=== PATIENT | female | born 1965 | race Caucasian/White ===

== ENCOUNTER 2017-01-16 23:58 | Emergency (ER) | payer OTHER ==
[2017-01-17] MEDS ORDERED: TYLENOL 325 MG PO ONE (00:53)
[2017-01-17] MEDS ORDERED: Phenergan 25 MG INJ IV ONE (00:53)
[2017-01-17] MEDS ORDERED: Sodium Chloride 0.9% 1000 ML 1,000 ML IV STA ×2 (00:53→01:27)
--- NOTE | 2017-01-17 00:59 | ERPHSYRPT ---
- History of Present Illness Time Seen by Provider: 01/17/17 00:47 Source: patient Exam Limitations: no limitations Patient Subjective Stated Complaint: Pt sts left flank pain today with difficulty urianting. Sts feels like she is just dribbling. 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 Sts still feels nauseated. Triage Nursing Assessment: Pt alert, oriented, answers all questions appropriately. Skin p/w/d, resps non-labored. Pt ambulatory to tx room, steady gait noted. Physician History: FOR THE PAST 2 DAYS PT HAS HAD INTERMITTENT LUQ ABDOMINAL CRAMPS LASTING UP TO 30 MINUTES PER EPISODE, DIARRHEA X5 AND VOMITING X2; FOR THE PAST 9 HOURS CONSTANT FRONTAL HEADACHE, URINARY URGENCY AND FEVER UP TO 100.9 DEGREES. Allergies/Adverse Reactions: codeine [Codeine] Allergy (Mild, Verified 01/17/17 00:21) Home Medications: Ativan 05/30/12 [History] Lortab 5-500 Tablet 05/30/12 [History] Pepcid 20 MG 20 mg PO DAILY 05/30/12 [History] Zyrtec 05/30/12 [History] Hx Tetanus, Diphtheria Vaccination/Date Given: No Hx Influenza Vaccination/Date Given: No Hx Pneumococcal Vaccination/Date Given: No Immunizations Up to Date: Yes - Review of Systems Constitutional: Fever Abdominal/Gastrointestinal: Abdominal Pain, Vomiting, Diarrhea Genitourinary Symptoms: Urgency Neurological: Headache All Other Systems: Reviewed and Negative - Past Medical History Pertinent Past Medical History: Yes Respiratory History: Asthma GI Medical History: GERD - Social History Smoking Status: Never smoker Exposure to second hand smoke: No Drug Use: none Patient Lives Alone: No - Female History Hx Now: No - Nursing Vital Signs Nursing Vital Signs: Initial Vital Signs Temperature 99.2 F 01/17/17 00:44 Pulse Rate 112 H 01/17/17 00:44 Respiratory Rate 16 01/17/17 00:44 Blood Pressure 130/73 01/17/17 00:44 O2 Sat by Pulse Oximetry 93 L 01/17/17 00:44 Pain Scale Pain Intensity 2 - Physical Exam General Appearance: alert Eye Exam: PERRL/EOMI Ears, Nose, Throat Exam: TMs normal, dry mucous membranes Neck Exam: normal inspection Respiratory Exam: lungs clear, airway intact Cardiovascular Exam: tachycardia Gastrointestinal/Abdomen Exam: soft, tenderness (MILD SUPRAPUBIC TENDERNESS), other (B.S. MILDLY HYPERACTIVE AND NORMOTONIC), No guarding Back Exam: normal range of motion Extremity Exam: normal inspection Neurologic Exam: alert, cooperative, normal mood/affect Skin Exam: warm, dry SpO2 Interpretation: normal SpO2: 93 Oxygen Delivery: Room Air - Course Nursing assessment & vital signs reviewed: Yes - CT Exams Abdomen/Pelvis CT Interpretation: Tele-radiologist Report (SEE REPORT) Ordered Tests: Active Orders 24 hr Category Date Time Status IV Insertion STAT Care 01/17/17 00:53 Active ABDOMEN AND PELVIS W/0 CONTRAS [CT] Stat Exams 01/17/17 02:53 Taken AMYLASE Stat Lab 01/17/17 01:00 Completed BLOOD CULTURE Stat Lab 01/17/17 01:12 Received CBC W DIFF Stat Lab 01/17/17 01:00 Completed CMP Stat Lab 01/17/17 01:00 Completed LIPASE Stat Lab 01/17/17 01:00 Completed Lactic Acid Stat Lab 01/17/17 01:06 Completed MAG [MAGNESIUM] Stat Lab 01/17/17 01:00 Completed [place] Screen Stat Lab 01/17/17 01:00 Completed UA W/RFX UR CULTURE Stat Lab 01/17/17 01:45 Completed Medication Summary Discontinued Medications Generic Name Dose Route Start Last Admin Trade Name Freq PRN Reason Stop Dose Admin Acetaminophen 650 mg 01/17/17 00:53 01/17/17 01:19 Tylenol 325 Mg PO 01/17/17 00:54 650 mg STAT ONE Administration Acetaminophen Confirm 01/17/17 01:14 Tylenol 325 Mg Administered 01/17/17 01:15 Dose 650 mg .ROUTE .STK-MED ONE Sodium Chloride 1,000 mls @ 999 mls/hr 01/17/17 00:53 01/17/17 01:19 Sodium Chloride 0.9% 1000 Ml IV 01/17/17 01:53 999 mls/hr .Q1H1M STA Administration Sodium Chloride Confirm 01/17/17 01:14 Sodium Chloride 0.9% 1000 Ml Administered 01/17/17 01:15 Dose 1,000 mls @ ud .ROUTE .STK-MED ONE Sodium Chloride 1,000 mls @ 999 mls/hr 01/17/17 01:27 01/17/17 02:40 Sodium Chloride 0.9% 1000 Ml IV 01/17/17 02:27 999 mls/hr .Q1H1M STA Administration Magnesium Sulfate/Dextrose 100 mls @ 200 mls/hr 01/17/17 01:56 01/17/17 02:09 Magnesium 1 Gm / 100 Ml D5w IV 01/17/17 02:25 200 mls/hr STAT ONE Administration Magnesium Sulfate/Dextrose Confirm 01/17/17 02:06 Magnesium 1 Gm / 100 Ml D5w Administered 01/17/17 02:07 Dose 100 mls @ ud IV .STK-MED ONE Sodium Chloride Confirm 01/17/17 02:22 Sodium Chloride 0.9% 1000 Ml Administered 01/17/17 02:23 Dose 1,000 mls @ ud .ROUTE .STK-MED ONE Promethazine HCl 12.5 mg 01/17/17 00:53 01/17/17 01:19 Phenergan 25 Mg Inj IV 01/17/17 00:54 12.5 mg STAT ONE Administration Promethazine HCl Confirm 01/17/17 01:14 Phenergan 25 Mg Inj Administered 01/17/17 01:15 Dose 25 mg .ROUTE .STK-MED ONE Lab/Rad Data: Laboratory Result Diagrams 01/17/17 01:00 01/17/17 01:00 Laboratory Results 01/17/17 01/17/17 01/17/17 Range/Units 01:45 01:06 01:00 WBC (4.0-10.5) K/mm3 RBC (4.1-5.4) M/mm3 Hgb (12.0-16.0) gm/dl Hct (35-47) % MCV (78-100) fl MCH (26-32) pg MCHC (32-36) g/dl RDW (11.5-14.0) % Plt Count (150-450) K/mm3 MPV (6-9.5) fl Gran % (36.0-66.0) % Lymphocytes % (24.0-44.0) % Monocytes % (0.0-12.0) % Eosinophils % (0.00-5.0) % Basophils % (0.0-0.4) % Basophils # (0-0.4) Sodium (136-145) mEq/L Potassium (3.5-5.1) mEq/L Chloride (98-107) mEq/L Carbon Dioxide (21-32) mEq/L Anion Gap (5-15) MEQ/L BUN (9-20) mg/dL Creatinine (0.55-1.30) mg/dl Estimated GFR ML/MIN Glucose (70-110) MG/DL Lactic Acid 0.7 (0.4-2.0) Calcium (8.5-10.1) mg/dL Magnesium (1.8-2.4) mg/dL Total Bilirubin (0.2-1.0) mg/dL AST (15-37) U/L ALT (12-78) U/L Alkaline Phosphatase (46-116) U/L Serum Total Protein (6.4-8.2) gm/dL Albumin (3.4-5.0) g/dL Amylase (25-115) U/L Lipase (73-393) U/L Ur Collection Type CLEAN CATCH Urine Color YELLOW (YELLOW) Urine Appearance CLEAR (CLEAR) Urine pH 6.0 (5-6) Ur Specific [place] 1.015 (1.005-1.025) Urine Protein NEGATIVE (Negative) Urine Ketones NEGATIVE (NEGATIVE) Urine Blood NEGATIVE (0-5) Mj/ul Urine Nitrite NEGATIVE (NEGATIVE) Urine Bilirubin NEGATIVE (NEGATIVE) Urine Urobilinogen NORMAL (0-1) mg/dL Ur Leukocyte Esterase NEGATIVE (NEGATIVE) Urine Glucose NEGATIVE (NEGATIVE) mg/dL Monoscreen NEGATIVE (Negative) Specimen Received 01/17/17:0145 01/17/17 01/17/17 01/17/17 Range/Units 01:00 01:00 01:00 WBC 12.4 H (4.0-10.5) K/mm3 RBC 4.59 (4.1-5.4) M/mm3 Hgb 13.7 (12.0-16.0) gm/dl Hct 40.5 (35-47) % MCV 88.2 (78-100) fl MCH 29.8 (26-32) pg MCHC 33.8 (32-36) g/dl RDW 12.3 (11.5-14.0) % Plt Count 206 (150-450) K/mm3 MPV 9.6 H (6-9.5) fl Gran % 84.5 H (36.0-66.0) % Lymphocytes % 9.9 L (24.0-44.0) % Monocytes % 4.8 (0.0-12.0) % Eosinophils % 0.6 (0.00-5.0) % Basophils % 0.2 (0.0-0.4) % Basophils # 0.02 (0-0.4) Sodium 140 (136-145) mEq/L Potassium 3.5 (3.5-5.1) mEq/L Chloride 105 (98-107) mEq/L Carbon Dioxide 25.2 (21-32) mEq/L Anion Gap 13.6 (5-15) MEQ/L BUN 11 (9-20) mg/dL Creatinine 0.79 (0.55-1.30) mg/dl Estimated GFR > 60 ML/MIN Glucose 113 H (70-110) MG/DL Lactic Acid (0.4-2.0) Calcium 8.5 (8.5-10.1) mg/dL Magnesium 1.5 L (1.8-2.4) mg/dL Total Bilirubin 0.50 (0.2-1.0) mg/dL AST 12 L (15-37) U/L ALT 23 (12-78) U/L Alkaline Phosphatase 104 (46-116) U/L Serum Total Protein 6.8 (6.4-8.2) gm/dL Albumin 3.6 (3.4-5.0) g/dL Amylase 34 (25-115) U/L Lipase 103 (73-393) U/L Ur Collection Type Urine Color (YELLOW) Urine Appearance (CLEAR) Urine pH (5-6) Ur Specific [place] (1.005-1.025) Urine Protein (Negative) Urine Ketones (NEGATIVE) Urine Blood (0-5) Mj/ul Urine Nitrite (NEGATIVE) Urine Bilirubin (NEGATIVE) Urine Urobilinogen (0-1) mg/dL Ur Leukocyte Esterase (NEGATIVE) Urine Glucose (NEGATIVE) mg/dL Monoscreen (Negative) Specimen Received - Departure Time of Disposition: 04:24 Departure Disposition: Home Clinical Impression: ABDOMINAL PAIN, HYPOMAGNESEMIA, DIARRHEA, VOMITING Condition: Stable Critical Care Time: No Referrals: RAINA ABRAMS [NON-STAFF PHY W/O PRIVILEGES] - Instructions: Vomiting -- Adult, Diarrhea and Traveler's Diarrhea -- Adult, Abdominal Pain-Adult Additional Instructions: FOLLOW UP WITH PRIVATE DOCTOR TOMORROW. Prescriptions: Promethazine HCl 25 mg [Phenergan 25 mg] 25 mg PO Q4H PRN PRN #14 tablet PRN Reason: Nausea/Vomiting
[2017-01-17] MEDS ORDERED: Sodium Chloride 0.9% 1000 ML 1,000 ML ONE ×2 (01:14→02:22)
[2017-01-17] MEDS ORDERED: TYLENOL 325 MG ONE (01:14)
[2017-01-17] MEDS ORDERED: Phenergan 25 MG INJ ONE (01:14)
[2017-01-17 01:16] LABS: BASOPHIL % 0.2 % (0.0-0.4); Eosinophil % 0.6 % (0.00-5.0); Granulocytes % 84.5 % (36.0-66.0); Lymphocytes % 9.9 % (24.0-44.0); Mean Cell Volume 88.2 fl (78-100); Mean Corpuscular Hemoglobin 29.8 pg (26-32); Mean Platelet Volume 9.6 fl (6-9.5); Monocytes % 4.8 % (0.0-12.0); Platelet Count 206 K/mm3 (150-450); Red Blood Count 4.59 M/mm3 (4.1-5.4); Red Cell Distribution Width 12.3 % (11.5-14.0); White Blood Count 12.4 K/mm3 (4.0-10.5)
[2017-01-17 01:41] LABS: ALBUMIN 3.6 g/dL (3.4-5.0); ALKALINE PHOSPHATASE 104 U/L (46-116); ANION GAP 13.6 MEQ/L (5-15); BLOOD UREA NITROGEN 11 mg/dL (9-20); CHLORIDE 105 mEq/L (98-107); Carbon Dioxide 25.2 mEq/L (21-32); Glucose 113 MG/DL (70-110); LIPASE 103 U/L (73-393); Potassium 3.5 mEq/L (3.5-5.1); SGOT/AST 12 U/L (15-37); SGPT/ALT 23 U/L (12-78); SODIUM 140 mEq/L (136-145); Total Protein 6.8 gm/dL (6.4-8.2)
[2017-01-17] MEDS ORDERED: Magnesium 1 Gm / 100 Ml D5W*** 100 ML IV ONE ×2 (01:56→02:06)
[2017-01-17 01:59] LABS: Collection Type CLEAN CATCH
[2017-01-17 02:00] LABS: ADD URINE CULTURE? NO (NO); Bilirubin NEGATIVE (NEGATIVE); Blood NEGATIVE Ery/ul (0-5); COMPLETE URINE MICROSCOPIC? NO; Glucose NEGATIVE (NEGATIVE); Leukocyte Esterase NEGATIVE (NEGATIVE)
[2017-01-17 04:46] VITALS: BP 114/56; PULSE 90; O2SAT 97
--- NOTE | 2017-01-17 09:03 | XRAY ---
Indication: Left upper quadrant pain. Nausea, vomiting, diarrhea, and fever. Multiple contiguous axial images obtained through the abdomen and pelvis without contrast as ordered. Comparison: July 01, 2007. Lung bases demonstrates mild bibasilar dependent atelectasis. Heart is not enlarged. Noncontrasted stomach and bowel loops appear nonobstructed. Minimal sigmoid diverticulosis without diverticulitis. Appendix not seen. There is again a left ovary cyst today measuring 4.7 cm in greatest axial dimension. No free fluid/air. Uterus again surgically absent. Stable 5.5 x 4.0 cm well-circumscribed soft tissue mass adjacent to the splenic hilum probably splenule. Remaining liver, gallbladder, pancreas, spleen, adrenal glands, kidneys, ureters, bladder, and aorta appear unremarkable for noncontrast exam. Osseous structures intact with flowing osteophytes throughout the thoracolumbar spine. Impression: 1. 4.7 cm left ovary cyst. This can be better evaluated with pelvic sonogram if clinically warranted. 2. Stable splenic splenule. 3. Sigmoid diverticulosis without diverticulitis. 4. No new or acute intra-abdominal/pelvic abnormalities on this noncontrast exam. Comment: Preliminary interpretation was made by C. No discrepancy. CT DI 28.13
== END 2017-01-17 04:45 | disposition home or self-care (01) ==
LOC: ED 23:58
DX: R10.9 Unspecified abdominal pain (principal); E83.42 Hypomagnesemia; R19.7 Diarrhea, unspecified; R11.2 Nausea with vomiting, unspecified; R51 Headache; R39.15 Urgency of urination; R50.9 Fever, unspecified
CPT/HCPCS: 36000; 36415; 74176; 80053; 81002; 82150; 83605; 83690; 83735; 85025; 86308; 87040; 96360; 96361; 96365; 96374; 99284; J2550; J3475; A9270-GY

== ENCOUNTER 2019-06-17 21:51 | Emergency (ER) | payer OTHER ==
[2019-06-17] MEDS ORDERED: TYLENOL 325 MG PO STA (22:25)
[2019-06-17] MEDS ORDERED: Sodium Chloride 0.9% 1000 ML 1,000 ML IV STA (22:25)
[2019-06-17] MEDS ORDERED: TYLENOL 325 MG ONE (22:30)
[2019-06-17] MEDS ORDERED: Sodium Chloride 0.9% 1000 ML 1,000 ML ONE (22:30)
[2019-06-17 22:49] LABS: Absolute Neutrophil Ct (ANC) 10.41 (1.4-6.9); BASOPHIL % 0.2 % (0.0-0.4); Basophil (Absolute #) 0.03 (0-0.4); Eosinophil % 0.9 % (0.00-5.0); Eosinophil (Absolute #) 0.11 (0-0.5); Hematocrit 42.6 % (35-47); Lymphocyte (Absolute #) 1.11 (1.0-4.6); Lymphocytes % 8.9 % (24.0-44.0); Mean Cell Volume 90.8 fl (78-100); Mean Corpuscular Hemoglobin 29.9 pg (26-32); Mean Corpuscular Hgb Concent. 32.9 g/dl (32-36); Mean Platelet Volume 9.7 fl (7.5-11.0); Monocyte (Absolute #) 0.79 (0.0-1.3); Monocytes % 6.3 % (0.0-12.0); Neutrophil % 83.7 % (36.0-66.0); Platelet Count 212 K/mm3 (150-450); Red Blood Count 4.69 M/mm3 (4.1-5.4); Red Cell Distribution Width 12.3 % (11.5-14.0); White Blood Count 12.5 K/mm3 (4.0-10.5)
--- NOTE | 2019-06-17 22:57 | ERPHSYRPT ---
- History of Present Illness Time Seen by Provider: 06/17/19 22:10 Source: patient Exam Limitations: no limitations Physician History: 54 y/o white female feeling well until earlier today when she began having dysuria, urgency and urinary frequency. pt felt ok after sx began. pt now feeling weak, myalgias, arthralgias. sore throat. no cough. no specific cp. no n /v/d. no abd pain Timing/Duration: today Severity: moderate Associated Symptoms: fever, malaise, weakness, No nausea, No vomiting, No abdominal pain, No cough Allergies/Adverse Reactions: codeine [Codeine] Allergy (Mild, Verified 01/17/17 00:21) Home Medications: Acetaminophen/Diphenhydramine [Tylenol Pm Ex-Strength Caplet] 500 mg PO TID [History] Albuterol 8 gm Mdi Hfa [Ventolin Hfa MDI] 2 puffs IH TID PRN PRN 06/17/19 [History] Bupropion HCl 75 mg PO BID 06/17/19 [History] Mag Hydrox/Al Hydrox/Simeth [Maalox Es 30 ml Unit Dose] 30 ml PO TID 06/17 [History] Hx Tetanus, Diphtheria Vaccination/Date Given: No Hx Influenza Vaccination/Date Given: No Hx Pneumococcal Vaccination/Date Given: No - Review of Systems Constitutional: Fever, Weakness Eyes: No Symptoms Ears, Nose, & Throat: No Symptoms Respiratory: No Symptoms Cardiac: No Symptoms Abdominal/Gastrointestinal: No Symptoms, No Abdominal Pain, No Nausea, No Vomiting, No Dysphagia Genitourinary Symptoms: Dysuria, Frequency, Urgency Musculoskeletal: No Symptoms Skin: No Symptoms Neurological: No Symptoms Psychological: No Symptoms Endocrine: No Symptoms Hematologic/Lymphatic: No Symptoms Immunological/Allergic: No Symptoms All Other Systems: Reviewed and Negative - Past Medical History Pertinent Past Medical History: Yes Neurological History: No Pertinent History ENT History: No Pertinent History Cardiac History: No Pertinent History Respiratory History: Asthma Endocrine Medical History: No Pertinent History Musculoskeletal History: No Pertinent History GI Medical History: GERD History: No Pertinent History Psycho-Social History: No Pertinent History Female Reproductive Disorders: No Pertinent History - Past Surgical History Past Surgical History: No Neuro Surgical History: No Pertinent History Cardiac: No Pertinent History Respiratory: No Pertinent History Gastrointestinal: No Pertinent History Genitourinary: No Pertinent History Musculoskeletal: No Pertinent History Female Surgical History: No Pertinent History - Social History Smoking Status: Never smoker Exposure to second hand smoke: No Drug Use: none Patient Lives Alone: No - Nursing Vital Signs Nursing Vital Signs: Initial Vital Signs Pulse Rate 102 H 06/17/19 22:08 Respiratory Rate 19 06/17/19 22:08 Blood Pressure 124/75 06/17/19 22:08 O2 Sat by Pulse Oximetry 96 06/17/19 22:08 Pain Scale Pain Intensity 3 - Physical Exam General Appearance: mild distress, alert, anxiety Eye Exam: PERRL/EOMI, eyes nml inspection Ears, Nose, Throat Exam: normal ENT inspection, moist mucous membranes Neck Exam: normal inspection, non-tender, supple, full range of motion Respiratory Exam: normal breath sounds, lungs clear, airway intact, No chest tenderness, No respiratory distress Cardiovascular Exam: regular rate/rhythm, normal heart sounds, normal peripheral pulses Gastrointestinal/Abdomen Exam: soft, normal bowel sounds, No tenderness, No guarding Pelvic Exam: not done Rectal Exam: not done Back Exam: normal inspection, normal range of motion, No CVA tenderness, No vertebral tenderness Extremity Exam: normal inspection, normal range of motion, pelvis stable Neurologic Exam: alert, oriented x 3, cooperative, group burner machine II-XII nml as tested Skin Exam: normal color, warm, dry Lymphatic Exam: No adenopathy SpO2 Interpretation: normal SpO2: 96 O2 Delivery: Room Air - Course Nursing assessment & vital signs reviewed: Yes Ordered Tests: Active Orders 24 hr Category Date Time Status IV Insertion STAT Care 06/17/19 22:25 Active Pulse Oximetry (ED) STAT Care 06/17/19 22:25 Active CHEST 1 VIEW (PORTABLE) Stat Exams 06/17/19 22:26 Taken BLOOD CULTURE Stat Lab 06/17/19 22:40 Received CBC W DIFF Stat Lab 06/17/19 22:30 Completed CMP Stat Lab 06/17/19 22:30 Completed Lactic Acid Stat Lab 06/17/19 22:46 Completed [place] Screen Stat Lab 06/17/19 22:30 Completed UA W/RFX UR CULTURE Stat Lab 06/17/19 22:00 Completed Medication Summary Generic Name Dose Route Start Last Admin Trade Name Freq PRN Reason Stop Dose Admin Sodium Chloride 500 mls @ 500 mls/hr 06/17/19 23:55 06/18/19 00:04 Sodium Chloride 0.9% 500 Ml IV 06/18/19 00:54 500 mls/hr .Q1H ONE Administration Discontinued Medications Generic Name Dose Route Start Last Admin Trade Name Sergo PRN Reason Stop Dose Admin Acetaminophen 650 mg 06/17/19 22:25 06/17/19 22:31 Tylenol 325 Mg PO 06/17/19 22:26 650 mg STAT STA Administration Acetaminophen Confirm 06/17/19 22:30 Tylenol 325 Mg Administered 06/17/19 22:31 Dose 650 mg .ROUTE .STK-MED ONE Sodium Chloride 1,000 mls @ 999 mls/hr 06/17/19 22:25 06/17/19 23:43 Sodium Chloride 0.9% 1000 Ml IV 06/17/19 23:25 Infused .Q1H1M STA Infusion Sodium Chloride Confirm 06/17/19 22:30 Sodium Chloride 0.9% 1000 Ml Administered 06/17/19 22:31 Dose 1,000 mls @ ud .ROUTE .STK-MED ONE Sodium Chloride Confirm 06/18/19 00:03 Sodium Chloride 0.9% 500 Ml Administered 06/18/19 00:04 Dose 500 mls @ ud IV .STK-MED ONE Lab/Rad Data: Laboratory Result Diagrams 06/17/19 22:30 06/17/19 22:30 Laboratory Results 06/17/19 06/17/19 06/17/19 Range/Units 22:46 22:43 22:30 WBC (4.0-10.5) K/mm3 RBC (4.1-5.4) M/mm3 Hgb (12.0-16.0) gm/dl Hct (35-47) % MCV (78-100) fl MCH (26-32) pg MCHC (32-36) g/dl RDW (11.5-14.0) % Plt Count (150-450) K/mm3 MPV (7.5-11.0) fl Gran % (36.0-66.0) % Eos # (Auto) (0-0.5) Absolute Lymphs (auto) (1.0-4.6) Absolute Monos (auto) (0.0-1.3) Lymphocytes % (24.0-44.0) % Monocytes % (0.0-12.0) % Eosinophils % (0.00-5.0) % Basophils % (0.0-0.4) % Absolute Granulocytes (1.4-6.9) Basophils # (0-0.4) Sodium (137-145) mmol/L Potassium (3.5-5.1) mmol/L Chloride (98-107) mmol/L Carbon Dioxide (22-30) mmol/L Anion Gap (5-15) MEQ/L BUN (7-17) mg/dL Creatinine (0.52-1.04) mg/dL Estimated GFR ML/MIN Glucose (74-106) mg/dL Lactic Acid 0.9 (0.4-2.0) Calcium (8.4-10.2) mg/dL Total Bilirubin (0.2-1.3) mg/dL AST (14-36) U/L ALT (0-35) U/L Alkaline Phosphatase (38-126) U/L Serum Total Protein (6.3-8.2) g/dL Albumin (3.5-5.0) g/dL Urine Color (YELLOW) Urine Appearance (CLEAR) Urine pH (5-6) Ur Specific [place] (1.005-1.025) Urine Protein (Negative) Urine Ketones (NEGATIVE) Urine Blood (0-5) Mj/ul Urine Nitrite (NEGATIVE) Urine Bilirubin (NEGATIVE) Urine Urobilinogen (0-1) mg/dL Ur Leukocyte Esterase (NEGATIVE) Urine WBC (Auto) (0-5) /HPF Urine RBC (Auto) (0-2) /HPF U Epithel Cells (Auto) (FEW) /HPF Urine Bacteria (Auto) (NEGATIVE) /HPF Urine Culture Reflexed (NO) Urine Glucose (NEGATIVE) mg/dL Monoscreen NEGATIVE (Negative) Influenza Type A Ag NEGATIVE (NEGATIVE) Influenza Type B Ag NEGATIVE (NEGATIVE) RSV (PCR) NEGATIVE (Negative) Group A Strep Antibody NEGATIVE (NEGATIVE) 06/17/19 06/17/19 06/17/19 Range/Units 22:30 22:30 22:00 WBC 12.5 H (4.0-10.5) K/mm3 RBC 4.69 (4.1-5.4) M/mm3 Hgb 14.0 (12.0-16.0) gm/dl Hct 42.6 (35-47) % MCV 90.8 (78-100) fl MCH 29.9 (26-32) pg MCHC 32.9 (32-36) g/dl RDW 12.3 (11.5-14.0) % Plt Count 212 (150-450) K/mm3 MPV 9.7 (7.5-11.0) fl Gran % 83.7 H (36.0-66.0) % Eos # (Auto) 0.11 (0-0.5) Absolute Lymphs (auto) 1.11 (1.0-4.6) Absolute Monos (auto) 0.79 (0.0-1.3) Lymphocytes % 8.9 L (24.0-44.0) % Monocytes % 6.3 (0.0-12.0) % Eosinophils % 0.9 (0.00-5.0) % Basophils % 0.2 (0.0-0.4) % Absolute Granulocytes 10.41 H (1.4-6.9) Basophils # 0.03 (0-0.4) Sodium 138 (137-145) mmol/L Potassium 3.9 (3.5-5.1) mmol/L Chloride 99 (98-107) mmol/L Carbon Dioxide 28 (22-30) mmol/L Anion Gap 14.2 (5-15) MEQ/L BUN 14 (7-17) mg/dL Creatinine 0.64 (0.52-1.04) mg/dL Estimated GFR > 60.0 ML/MIN Glucose 102 (74-106) mg/dL Lactic Acid (0.4-2.0) Calcium 9.4 (8.4-10.2) mg/dL Total Bilirubin 0.70 (0.2-1.3) mg/dL AST 23 (14-36) U/L ALT 18 (0-35) U/L Alkaline Phosphatase 116 (38-126) U/L Serum Total Protein 8.2 (6.3-8.2) g/dL Albumin 4.8 (3.5-5.0) g/dL Urine Color STRAW (YELLOW) Urine Appearance CLEAR (CLEAR) Urine pH 7.0 (5-6) Ur Specific [place] 1.012 (1.005-1.025) Urine Protein NEGATIVE (Negative) Urine Ketones NEGATIVE (NEGATIVE) Urine Blood NEGATIVE (0-5) Mj/ul Urine Nitrite NEGATIVE (NEGATIVE) Urine Bilirubin NEGATIVE (NEGATIVE) Urine Urobilinogen NEGATIVE (0-1) mg/dL Ur Leukocyte Esterase TRACE (NEGATIVE) Urine WBC (Auto) 3-5 (0-5) /HPF Urine RBC (Auto) 0-2 (0-2) /HPF U Epithel Cells (Auto) RARE (FEW) /HPF Urine Bacteria (Auto) RARE (NEGATIVE) /HPF Urine Culture Reflexed NO (NO) Urine Glucose NEGATIVE (NEGATIVE) mg/dL Monoscreen (Negative) Influenza Type A Ag (NEGATIVE) Influenza Type B Ag (NEGATIVE) RSV (PCR) (Negative) Group A Strep Antibody (NEGATIVE) - Progress Progress: improved, pain not gone completely, re-examined Progress Note: 06/18/19 00:39 cxr-no acute process Counseled pt/family regarding: lab results, diagnosis, need for follow-up, rad results - Departure Departure Disposition: Home Clinical Impression: Fever, Leukocytosis, UTI (urinary tract infection) Condition: Stable Critical Care Time: No Referrals: PRIYANKA CONDE MD [Primary Care Provider] - Additional Instructions: drink plenty of fluids. tylenol and ibuprofen for pain and fever. follow up with primary doctor for persistent symptoms Prescriptions: Cefdinir [Omnicef] 300 mg PO BID #14 capsule Cefdinir 300 mg PO BID 7 Days #14 capsule
[2019-06-17 22:59] LABS: ALBUMIN 4.8 g/dL (3.5-5.0); ALKALINE PHOSPHATASE 116 U/L (38-126); ANION GAP 14.2 MEQ/L (5-15); BLOOD UREA NITROGEN 14 mg/dL (7-17); CHLORIDE 99 mmol/L (98-107); Calcium 9.4 mg/dL (8.4-10.2); Carbon Dioxide 28 mmol/L (22-30); Creatinine 1 0.64 mg/dL (0.52-1.04); Glucose 102 mg/dL (74-106); Potassium 3.9 mmol/L (3.5-5.1); SGOT/AST 23 U/L (14-36); SGPT/ALT 18 U/L (0-35); SODIUM 138 mmol/L (137-145); Total Protein 8.2 g/dL (6.3-8.2)
[2019-06-17 23:29] LABS: INFLUENZA A NEGATIVE (NEGATIVE); INFLUENZA B NEGATIVE (NEGATIVE); RESPIRATORY SYNCTIAL VIRUS NEGATIVE (Negative)
[2019-06-17 23:42] LABS: Appearance CLEAR (CLEAR); Bacteria RARE /HPF (NEGATIVE); Bilirubin NEGATIVE (NEGATIVE); Blood NEGATIVE Ery/ul (0-5); Epithelial Cells RARE /HPF (FEW); Glucose NEGATIVE (NEGATIVE); Ketones NEGATIVE (NEGATIVE); Leukocyte Esterase TRACE (NEGATIVE); Nitrite NEGATIVE (NEGATIVE); Protein,Urine Dip NEGATIVE (Negative); RBC 0-2 /HPF (0-2); Specific Gravity 1.012 (1.005-1.025); Urobilinogen NEGATIVE mg/dL (0-1)
[2019-06-17] MEDS ORDERED: Sodium Chloride 0.9% 500 ML 500 ML IV ONE (23:55)
[2019-06-18] MEDS ORDERED: Sodium Chloride 0.9% 500 ML 500 ML IV ONE (00:03)
[2019-06-18] MEDS ORDERED: ROCEPHIN 1 Gm-D5w 50 ml Bag** 1 G/50 ML IVPB IV ONE (00:38)
[2019-06-18] MEDS ORDERED: ROCEPHIN 1 Gm-D5w 50 ml Bag** 1 G/50 ML IVPB IV STA (00:42)
[2019-06-18 01:11] VITALS: BP 114/79; PULSE 100; O2SAT 95
--- NOTE | 2019-06-18 09:18 | XRAY ---
Indication: Fever and cough. Comparison: June 05, 2012. Portable chest again demonstrates normal heart and lungs with a few incidental calcified granulomas. Bony thorax intact with mild degenerative changes. No new/acute findings.
== END 2019-06-18 01:18 | disposition home or self-care (01) ==
LOC: ED 21:51
DX: R50.9 Fever, unspecified (principal); D72.829 Elevated white blood cell count, unspecified; N39.0 Urinary tract infection, site not specified
CPT/HCPCS: 36000; 36415; 71045; 80053; 81001; 83605; 85025; 86308; 87040; 87631; 87651; 94760; 96360; 96361; 96365; 99284; J0696; A9270-GY

== ENCOUNTER 2022-05-12 10:05 | Emergency (ER) | payer OTHER ==
[2022-05-12] MEDS ORDERED: DUONEB 0.5-3 MG/3 ml Neb IH ONE ×2 (10:36→12:33)
[2022-05-12] MEDS ORDERED: Sterile H2O 10 ml IJ ONE (10:45)
[2022-05-12] MEDS ORDERED: solu-MEDROL ONE (10:45)
[2022-05-12] MEDS: solu-MEDROL 80 MG, Sterile H2O 10 ml 2 ML IV ONE ×4 (10:46→10:53)
--- NOTE | 2022-05-12 10:52 | ERPHSYRPT ---
- History of Present Illness Time Seen by Provider: 05/12/22 10:16 Source: patient Exam Limitations: no limitations Patient Subjective Stated Complaint: SOB Triage Nursing Assessment: Patient brought back to ED per w/c and transferred self to bed. Patient A+O x3. Patient's skin pink, warm and dry. Patient complains of increased SOB, fever, productive cough with green sputum since Monday. Patient complains of chest discomfort when coughing 5/10. Lungs noted to have rhonchi throughout. Physician History: 56 years old female presented in the ER with chief complaint of cough congestion with fever chills for last 5 days. Patient reports cough productive of yellow- green sputum copious in amount with generalized chest soreness/pain. She earlier checked her temperature it was 101, is sent in ER from [facility] for further evaluation. Patient reports she feels more short of breath with lying down and has been sleeping on recliner. She was taking Keflex for cellulitis and finished yesterday. Timing/Duration: day(s), gradual onset, worse Activities at Onset: activity Severity of Dyspnea-Max: moderate Severity of Dyspnea-Current: moderate Possible Cause: unknown cause Modifying Factors: Improves With: rest. Worsens With: coughing, exertion, lying down Associated Symptoms: cough, chest pain/discomfort, fever, productive cough, tigh tness Allergies/Adverse Reactions: codeine [Codeine] Allergy (Mild, Verified 05/12/22 10:06) Home Medications: Acetaminophen/Diphenhydramine [Tylenol Pm Ex-Strength Caplet] 500 mg PO TID 06/17/19 [History] Albuterol 8 gm Mdi Hfa [Ventolin Hfa MDI] 2 puffs IH TID PRN PRN 06/17/19 [History] buPROPion HCL [Bupropion HCl] 75 mg PO BID 06/17/19 [History] Hx Tetanus, Diphtheria Vaccination/Date Given: No Hx Influenza Vaccination/Date Given: Yes Hx Pneumococcal Vaccination/Date Given: No Immunizations Up to Date: Yes Travel Risk - International Travel Have you traveled outside of the country in past 3 weeks: No - Coronavirus Screening Are you exhibiting any of the following symptoms?: Yes Symptoms: Fever, Cough: New Onset, Shortness of Breath Close contact with a COVID-19 positive Pt in past 14-21 Days: No - Vaccine Status Have you recieved a Covid-19 vaccination: Yes Manager Billing: Pfizer - Vaccination Dates Date of 2cond Vaccination (if applicable): na - Review of Systems Constitutional: Fever, Chills, Fatigue Eyes: No Symptoms Ears, Nose, & Throat: Nose Congestion Respiratory: Cough, Dyspnea, Wheezing Cardiac: No Symptoms Abdominal/Gastrointestinal: No Symptoms Genitourinary Symptoms: No Symptoms Musculoskeletal: Myalgias Skin: No Symptoms Neurological: No Symptoms Psychological: No Symptoms Endocrine: No Symptoms Hematologic/Lymphatic: No Symptoms Immunological/Allergic: No Symptoms - Past Medical History Pertinent Past Medical History: Yes Neurological History: No Pertinent History ENT History: No Pertinent History Cardiac History: No Pertinent History Respiratory History: Asthma Endocrine Medical History: No Pertinent History Musculoskeletal History: No Pertinent History GI Medical History: GERD History: No Pertinent History Psycho-Social History: No Pertinent History Female Reproductive Disorders: No Pertinent History - Past Surgical History Past Surgical History: No Neuro Surgical History: No Pertinent History Cardiac: No Pertinent History Respiratory: No Pertinent History Gastrointestinal: No Pertinent History Genitourinary: No Pertinent History Musculoskeletal: No Pertinent History Female Surgical History: No Pertinent History - Social History Smoking Status: Never smoker Exposure to second hand smoke: No Drug Use: none Patient Lives Alone: No - Nursing Vital Signs Nursing Vital Signs: Initial Vital Signs Temperature 99.2 F 05/12/22 10:25 Pulse Rate 100 H 05/12/22 10:25 Respiratory Rate 18 05/12/22 10:25 Blood Pressure 144/83 05/12/22 10:25 O2 Sat by Pulse Oximetry 93 L 05/12/22 10:25 Pain Scale Pain Intensity 5 - Physical Exam General Appearance: no apparent distress, alert Eye Exam: PERRL/EOMI Ears, Nose, Throat Exam: hearing grossly normal, pharyngeal erythema Neck Exam: normal inspection, non-tender, supple, full range of motion Respiratory Exam: diminished breath sounds, rhonchi, wheezing Cardiovascular/Chest Exam: normal heart sounds, regular rate/rhythm Abdominal/Gastrointestinal Exam: soft, normal bowel sounds, No tenderness Extremity Exam: non-tender, normal range of motion Neurologic Exam: alert, oriented x 3, cooperative Skin Exam: normal color SpO2 Interpretation: normal SpO2: 93 O2 Delivery: Room Air - Course EKG Interpreted by Me: RATE (103), Sinus Tach, NORMAL AXIS, NORMAL INTERVALS, NORMAL QRS Ordered Tests: Active Orders 24 hr Category Date Time Status Dialysis Chief Equipment Technician STAT Care 05/12/22 10:37 Active EKG-ER Only STAT Care 05/12/22 10:36 Active IV Insertion STAT Care 05/12/22 10:36 Active CHEST 1 VIEW (PORTABLE) Stat Exams 05/12/22 10:52 Completed BLOOD CULTURE Stat Lab 05/12/22 10:50 Received CBC W DIFF Stat Lab 05/12/22 10:02 Completed CMP Stat Lab 05/12/22 10:02 Completed Lactic Acid Stat Lab 05/12/22 10:36 Ordered MAGNESIUM Stat Lab 05/12/22 10:02 Completed NT PRO BNP Stat Lab 05/12/22 10:02 Completed TROPONIN Q4H Lab 05/12/22 10:02 Completed TROPONIN Q4H Lab 05/12/22 14:45 Ordered TROPONIN Q4H Lab 05/12/22 18:45 Ordered Medication Summary Discontinued Medications Generic Name Dose Route Start Last Admin Trade Name Freq PRN Reason Stop Dose Admin Albuterol/Ipratropium 3 ml 05/12/22 10:36 Ipratropium/Albuterol Sulfate 3 Ml Ampul.Neb IH 05/12/22 10:37 STAT ONE Methylprednisolone Sodium 0 mg 05/12/22 10:36 05/12/22 10:53 Succinate 80 mg/ Sterile Water IV 05/12/22 10:37 80 mg 2 ml STAT ONE Administration Methylprednisolone Sodium Succinate Confirm 05/12/22 10:45 Methylprednis Sod Succ 125 Mg/2 Ml Vial Administered 05/12/22 10:46 Dose 125 mg .ROUTE .STK-MED ONE Sterile Water Confirm 05/12/22 10:45 Water For Injection,Sterile 10 Ml Vial Administered 05/12/22 10:46 Dose 10 ml IJ .STK-MED ONE Lab/Rad Data: Laboratory Result Diagrams 05/12/22 10:02 05/12/22 10:02 Laboratory Results 05/12/22 05/12/22 05/12/22 Range/Units Unknown 10:02 10:02 WBC (4.0-10.5) x10^3/uL RBC (4.1-5.4) x10^6/uL Hgb (12.0-16.0) g/dL Hct (35-47) % MCV (78-100) fL MCH (26-32) pg MCHC (32-36) g/dL RDW (11.5-14.0) % Plt Count (150-450) x10^3/uL MPV (7.5-11.0) fL Gran % (36.0-66.0) % Immature Gran % (Auto) (0.00-0.4) % Nucleat RBC Rel Count (0.00-0.1) % Eos # (Auto) (0-0.5) x10^3/uL Immature Gran # (Auto) (0.00-0.03) x10^3u/L Absolute Lymphs (auto) (1.0-4.6) x10^3/uL Absolute Monos (auto) (0.0-1.3) x10^3/uL Absolute Nucleated RBC (0.00-0.01) x10^3u/L Lymphocytes % (24.0-44.0) % Monocytes % (0.0-12.0) % Eosinophils % (0.00-5.0) % Basophils % (0.0-0.4) % Absolute Granulocytes (1.4-6.9) x10^3/uL Basophils # (0-0.4) x10^3/uL Sodium 138 (137-145) mmol/L Potassium 4.1 (3.5-5.1) mmol/L Chloride 106 (98-107) mmol/L Carbon Dioxide 24 (22-30) mmol/L Anion Gap 11.9 (5-15) MEQ/L BUN 13 (7-17) mg/dL Creatinine 0.54 (0.52-1.04) mg/dL Estimated GFR > 60.0 ML/MIN Glucose 129 H (74-106) mg/dL Calcium 9.0 (8.4-10.2) mg/dL Magnesium 1.8 (1.6-2.3) mg/dL Total Bilirubin 0.50 (0.2-1.3) mg/dL AST 20 (14-36) U/L ALT 21 (0-35) U/L Alkaline Phosphatase 91 (38-126) U/L Troponin I < 0.012 (0.000-0.034) ng/mL NT-Pro-B Natriuret Pep 115 (0-900) pg/mL Serum Total Protein 7.7 (6.3-8.2) g/dL Albumin 4.4 (3.5-5.0) g/dL Influenza Type A Ag NEGATIVE (NEGATIVE) Influenza Type B Ag NEGATIVE (NEGATIVE) RSV (PCR) NEGATIVE (Negative) SARS-CoV-2 (PCR) NEGATIVE (NEGATIVE) 05/12/22 Range/Units 10:02 WBC 11.7 H (4.0-10.5) x10^3/uL RBC 4.55 (4.1-5.4) x10^6/uL Hgb 13.4 (12.0-16.0) g/dL Hct 41.8 (35-47) % MCV 91.9 (78-100) fL MCH 29.5 (26-32) pg MCHC 32.1 (32-36) g/dL RDW 11.9 (11.5-14.0) % Plt Count 250 (150-450) x10^3/uL MPV 9.7 (7.5-11.0) fL Gran % 87.5 H (36.0-66.0) % Immature Gran % (Auto) 0.5 H (0.00-0.4) % Nucleat RBC Rel Count 0.0 (0.00-0.1) % Eos # (Auto) 0.02 (0-0.5) x10^3/uL Immature Gran # (Auto) 0.06 H (0.00-0.03) x10^3u/L Absolute Lymphs (auto) 0.85 L (1.0-4.6) x10^3/uL Absolute Monos (auto) 0.49 (0.0-1.3) x10^3/uL Absolute Nucleated RBC 0.00 (0.00-0.01) x10^3u/L Lymphocytes % 7.3 L (24.0-44.0) % Monocytes % 4.2 (0.0-12.0) % Eosinophils % 0.2 (0.00-5.0) % Basophils % 0.3 (0.0-0.4) % Absolute Granulocytes 10.22 H (1.4-6.9) x10^3/uL Basophils # 0.03 (0-0.4) x10^3/uL Sodium (137-145) mmol/L Potassium (3.5-5.1) mmol/L Chloride (98-107) mmol/L Carbon Dioxide (22-30) mmol/L Anion Gap (5-15) MEQ/L BUN (7-17) mg/dL Creatinine (0.52-1.04) mg/dL Estimated GFR ML/MIN Glucose (74-106) mg/dL Calcium (8.4-10.2) mg/dL Magnesium (1.6-2.3) mg/dL Total Bilirubin (0.2-1.3) mg/dL AST (14-36) U/L ALT (0-35) U/L Alkaline Phosphatase (38-126) U/L Troponin I (0.000-0.034) ng/mL NT-Pro-B Natriuret Pep (0-900) pg/mL Serum Total Protein (6.3-8.2) g/dL Albumin (3.5-5.0) g/dL Influenza Type A Ag (NEGATIVE) Influenza Type B Ag (NEGATIVE) RSV (PCR) (Negative) SARS-CoV-2 (PCR) (NEGATIVE) - Progress Progress: improved Air Movement: good Progress Note: 05/12/22 12:25 56 years old is evaluated for worsening cough and some difficulty breathing along with fever chills. She is given DuoNeb and Solu-Medrol, on reevaluation she is feeling much better. She is not hypoxic. Mildly tachypneic initially which improved after breathing treatment. She is not tachycardic. Chest x-ray did not show any acute cardiopulmonary findings. Work-up otherwise unremarkable including troponins. I believe patient has bronchitis, since its been going on for almost a week, will give short course of steroid and antibiotics. Outpatient follow-up recommended. Discussed signs symptoms of worsening needing return to ER which she seems understanding. Stable for discharge. Blood Culture(s) Obtained: Yes Antibiotics given: Yes Counseled pt/family regarding: lab results, diagnosis, need for follow-up, rad results - Departure Departure Disposition: Home Clinical Impression: Acute bronchitis Condition: Stable Critical Care Time: No Referrals: PRIYANKA CONDE MD [Primary Care Provider] - Follow up/PCP as directed (1-2 days for reevaluation) Instructions: Acute Bronchitis Additional Instructions: Take Tylenol/ibuprofen as needed for fever. Follow-up with primary care ph ysician. Use inhaler which you have at home as recommended. Return to ER for worsening cough, difficulty breathing, persistent high-grade fever chills etc. Prescriptions: Prednisone 20 mg [Deltasone 20 mg] 60 mg PO DAILY 5 Days #15 tablet Guaifenesin/Dextromethorphan [Mucinex Dm ER 1,200-60 mg Tab] 1 each PO BID 8 Days #16 tablet Doxycycline Hyclate 100 mg [Vibramycin 100 MG] 100 mg PO BID #14 tab
[2022-05-12 10:57] LABS: Absolute Neutrophil Ct (ANC) 10.22 x10^3/uL (1.4-6.9); Basophil (Absolute #) 0.03 x10^3/uL (0-0.4); Eosinophil % 0.2 % (0.00-5.0); Eosinophil (Absolute #) 0.02 x10^3/uL (0-0.5); Hematocrit 41.8 % (35-47); Hemoglobin 13.4 g/dL (12.0-16.0); Lymphocyte (Absolute #) 0.85 x10^3/uL (1.0-4.6); Lymphocytes % 7.3 % (24.0-44.0); Mean Cell Volume 91.9 fL (78-100); Mean Corpuscular Hemoglobin 29.5 pg (26-32); Mean Corpuscular Hgb Concent. 32.1 g/dL (32-36); Mean Platelet Volume 9.7 fL (7.5-11.0); Monocyte (Absolute #) 0.49 x10^3/uL (0.0-1.3); Monocytes % 4.2 % (0.0-12.0); Neutrophil % 87.5 % (36.0-66.0); Platelet Count 250 x10^3/uL (150-450); Red Blood Count 4.55 x10^6/uL (4.1-5.4); Red Cell Distribution Width 11.9 % (11.5-14.0); White Blood Count 11.7 x10^3/uL (4.0-10.5)
--- NOTE | 2022-05-12 11:01 | XRAY ---
Indication: Fever, cough, short of breath. Pneumonia. Comparison: June 17, 2019 Portable chest remains clear again with tiny left upper lobe calcified granuloma. Heart not enlarged. Bony thorax intact again with mild degenerative changes. No new/acute findings.
[2022-05-12 11:24] LABS: INFLUENZA A NEGATIVE (NEGATIVE); INFLUENZA B NEGATIVE (NEGATIVE); RESPIRATORY SYNCTIAL VIRUS NEGATIVE (Negative); SARS-CoV-2 Xpert Express NEGATIVE (NEGATIVE)
[2022-05-12 11:27] LABS: ALBUMIN 4.4 g/dL (3.5-5.0); ALKALINE PHOSPHATASE 91 U/L (38-126); ANION GAP 11.9 MEQ/L (5-15); BLOOD UREA NITROGEN 13 mg/dL (7-17); CHLORIDE 106 mmol/L (98-107); Carbon Dioxide 24 mmol/L (22-30); Creatinine 1 0.54 mg/dL (0.52-1.04); EST GLOMERULAR FILTRATION RATE > 60.0 ML/MIN; Glucose 129 mg/dL (74-106); MAGNESIUM 1.8 mg/dL (1.6-2.3); NT PRO BNP 115 pg/mL (0-900); Potassium 4.1 mmol/L (3.5-5.1); SGOT/AST 20 U/L (14-36); SGPT/ALT 21 U/L (0-35); SODIUM 138 mmol/L (137-145); Total Protein 7.7 g/dL (6.3-8.2)
[2022-05-12] MEDS ORDERED: Vibramycin 100 MG PO ONE (12:29)
[2022-05-12 12:36] VITALS: BP 113/87; PULSE 92
[2022-05-12 12:38] VITALS: O2SAT 95
[2022-05-12] MEDS ORDERED: Vibramycin 100 MG ONE (12:51)
== END 2022-05-12 13:04 | disposition home or self-care (01) ==
LOC: ED 10:05
DX: J20.9 Acute bronchitis, unspecified (principal); R50.9 Fever, unspecified; R05.1 Acute cough; R09.81 Nasal congestion; Z79.52 Long term (current) use of systemic steroids; Z79.899 Other long term (current) drug therapy
CPT/HCPCS: 0241U; 36000; 36415; 71045; 80053; 83605; 83735; 83880; 84484; 85025; 87040; 93005; 93041; 94640; 96374; 99284; J2930; A9270-GY

== ENCOUNTER 2024-07-18 05:35 | Observation (INO) | payer OTHER ==
[2024-07-18] MEDS: ZOFRAN ODT 4 MG PO ONE (06:21)
[2024-07-18] MEDS ORDERED: Sterile H2O 10 ml IJ ONE (06:22)
[2024-07-18] MEDS ORDERED: TYLENOL 325 MG ONE (06:22)
[2024-07-18] MEDS ORDERED: Zofran 4 MG/2 ML VIAL ONE (06:22)
[2024-07-18] MEDS ORDERED: TORAdol 30 mg Injection ONE (06:22)
[2024-07-18] MEDS ORDERED: solu-MEDROL ONE (06:23)
--- NOTE | 2024-07-18 06:25 | ERPHSYRPT ---
- History of Present Illness Time Seen by Provider: 07/18/24 06:18 Source: patient Exam Limitations: no limitations Patient Subjective Stated Complaint: pt states she was diagnosed with a sinus infection 3 days ago. pt states that she has been coughing the past couple hours Triage Nursing Assessment: pt ambulated into the er; pt is axo x3; c/o cough; pt states 7/10 bodyache; dry hacking cough present; clear lung sounds in all lobes; 91%-93% on room air; pt put on 2L nasal cannula, O2 94-95%; c/o N/V/D; active bowel sounds in all quads; febrile; skin hot, dry; pt states SOB, pt able to talk in full sentences; tachycardic; hypertensive Physician History: Patient is a 59-year-old female history of asthma presents to our ED for evaluation of cough chest pain fever nausea vomiting body aches. No diarrhea. Upon arrival to our emergency department patient was observed to be febrile. Patient was tachycardic in the 120s. Patient hypoxic at 91% on room air. Patient normally does not require oxygen. Symptoms have been ongoing for approximately 3 to 4 days. Patient was diagnosed with a sinus infection approximately 3 days ago. Patient currently on Augmentin. Patient's cough is dry nonproductive. Patient's symptoms have been progressive. Symptoms are moderate in intensity. Shortness of breath worse with exertion. 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 Portions of this note were created with voice recognition technology. There may be grammatical, spelling, punctuation or sound alike errors Timing/Duration: day(s) Severity: moderate Modifying Factors: Improves With: nothing, other (Patient tried taking a dose of Tylenol at 2 AM this morning but vomited the Tylenol.) Associated Symptoms: nausea, vomiting, shortness of breath Allergies/Adverse Reactions: codeine [Codeine] Allergy (Mild, Verified 07/18/24 05:36) phentermine Allergy (Verified 07/18/24 06:03) strawberry Allergy (Verified 07/18/24 06:03) Home Medications: Albuterol Sulfate [Albuterol Sulfate Hfa] 8.5 gm IH Q4HPRN PRN 07/18/24 [History] Amoxicillin/Potassium Clav [Amox-Clav 875-125 mg Tablet] 1 each PO Q12H 07/18/24 [History] Semaglutide [Ozempic] 2 mg SQ WEEKLY 07/18/24 [History] Hx Tetanus, Diphtheria Vaccination/Date Given: Yes Hx Influenza Vaccination/Date Given: Yes Hx Pneumococcal Vaccination/Date Given: Yes Travel Risk - International Travel Have you traveled outside of the country in past 3 weeks: No - Emerging Infectious Disease Are you exhibiting symptoms associated with any current EIDs: Yes Symptoms: Abdominal Pain, Cough: New Onset, Diarrhea, Fever, Headaches/Body Aches/, Vomitting - Review of Systems Constitutional: No Symptoms, No Fever, No Chills Eyes: No Symptoms Ears, Nose, & Throat: No Symptoms Respiratory: No Symptoms, No Cough, No Dyspnea Cardiac: No Symptoms, No Chest Pain, No Edema, No Syncope Abdominal/Gastrointestinal: No Symptoms, No Abdominal Pain, No Nausea, No Vomiting, No Diarrhea Genitourinary Symptoms: No Symptoms, No Dysuria Musculoskeletal: No Symptoms, No Back Pain, No Neck Pain Skin: No Symptoms, No Rash Neurological: No Symptoms, No Dizziness, No Focal Weakness, No Sensory Changes Psychological: No Symptoms Endocrine: No Symptoms Hematologic/Lymphatic: No Symptoms Immunological/Allergic: No Symptoms All Other Systems: Reviewed and Negative - Past Medical History Pertinent Past Medical History: Yes Neurological History: No Pertinent History ENT History: No Pertinent History Cardiac History: No Pertinent History Respiratory History: Asthma Endocrine Medical History: No Pertinent History Musculoskeletal History: No Pertinent History GI Medical History: GERD History: No Pertinent History Psycho-Social History: No Pertinent History Female Reproductive Disorders: No Pertinent History - Past Surgical History Past Surgical History: Yes Neuro Surgical History: No Pertinent History Cardiac: No Pertinent History Respiratory: No Pertinent History Gastrointestinal: No Pertinent History Genitourinary: No Pertinent History Musculoskeletal: No Pertinent History Female Surgical History: Hysterectomy, Tubal Ligation - Social History Smoking Status: Never smoker Exposure to second hand smoke: Yes Drug Use: none - Social Determinants of Health Will the patient participate in the screening: Yes Do you worry about a steady place to live?: No Do you have any problems with any of the following?: No known problems In the past 12 months,have you had to go without utilities?: No Transportation Issues: No Has anyone in your support network made you feel unsafe?: No Have you or anyone in your house had to go w/o enough food: No - Nursing Vital Signs Nursing Vital Signs: Initial Vital Signs Pulse Rate 123 H 07/18/24 05:37 Respiratory Rate 22 07/18/24 05:37 Blood Pressure 164/95 07/18/24 05:37 O2 Sat by Pulse Oximetry 94 L 07/18/24 05:37 Pain Scale Pain Intensity 7 - Physical Exam General Appearance: no apparent distress, alert Eye Exam: PERRL/EOMI, eyes nml inspection Ears, Nose, Throat Exam: normal ENT inspection, moist mucous membranes Neck Exam: normal inspection, full range of motion Respiratory Exam: airway intact, diminished breath sounds, rhonchi, wheezing, other (Patient hypoxic), No respiratory distress Cardiovascular Exam: regular rate/rhythm, normal heart sounds, normal peripheral pulses Gastrointestinal/Abdomen Exam: soft, normal bowel sounds, No tenderness, No mass Back Exam: normal inspection, normal range of motion, No CVA tenderness, No vertebral tenderness Extremity Exam: normal inspection, normal range of motion, pelvis stable Neurologic Exam: alert, oriented x 3, cooperative, normal mood/affect, sensation nml, No motor deficits Skin Exam: normal color, warm, dry, No rash Lymphatic Exam: No adenopathy SpO2 Interpretation: normal SpO2: 93 O2 Delivery: Room Air - Course Nursing assessment & vital signs reviewed: Yes EKG Interpreted by Me: RATE (125), Sinus Tach, NORMAL AXIS, NORMAL INTERVALS, NORMAL QRS Ordered Tests: Active Orders 24 hr Category Date Time Status Legal Job Titles STAT Care 07/18/24 06:14 Active EKG-ER Only STAT Care 07/18/24 06:12 Active IV Insertion STAT Care 07/18/24 06:12 Active Pulse Oximetry (ED) STAT Care 07/18/24 06:12 Active BLOOD CULTURE Stat Lab 07/18/24 06:13 Ordered CBC W DIFF Stat Lab 07/18/24 06:12 Ordered CMP Stat Lab 07/18/24 06:12 Ordered D-DIMER QUANTITATIVE Stat Lab 07/18/24 06:12 Ordered TROPONIN Q4H Lab 07/18/24 06:15 Ordered TROPONIN Q4H Lab 07/18/24 10:15 Ordered TROPONIN Q4H Lab 07/18/24 14:15 Ordered UA W/RFX UR CULTURE Stat Lab 07/18/24 06:13 Ordered Medication Summary Generic Name Dose Route Start Last Admin Trade Name Freq PRN Reason Stop Dose Admin Sodium Chloride 1,000 mls @ 100 mls/hr 07/18/24 06:15 07/18/24 06:28 Sodium Chloride 0.9% 1000 Ml IV 08/17/24 06:14 100 mls/hr .Q10H DEVIN Administration Discontinued Medications Generic Name Dose Route Start Last Admin Trade Name Sergo PRN Reason Stop Dose Admin Acetaminophen 975 mg 07/18/24 06:17 07/18/24 06:28 Acetaminophen 325 Mg Tablet PO 07/18/24 06:18 975 mg STAT ONE Administration Acetaminophen Confirm 07/18/24 06:22 Acetaminophen 325 Mg Tablet Administered 07/18/24 06:23 Dose 975 mg .ROUTE .STK-MED ONE Albuterol/Ipratropium 3 ml 07/18/24 06:12 Ipratropium/Albuterol Sulfate 3 Ml Ampul.Neb IH 07/18/24 06:13 STAT ONE Methylprednisolone Sodium 0 mg 07/18/24 06:12 07/18/24 06:28 Succinate 125 mg/ Sterile IV 07/18/24 06:13 125 mg Water 2 ml STAT ONE Administration Ketorolac Tromethamine 30 mg 07/18/24 06:17 07/18/24 06:27 Ketorolac Tromethamine 30 Mg/Ml Inj IV 07/18/24 06:18 30 mg STAT ONE Administration Ketorolac Tromethamine Confirm 07/18/24 06:22 Ketorolac Tromethamine 30 Mg/Ml Inj Administered 07/18/24 06:23 Dose 30 mg .ROUTE .STK-MED ONE Methylprednisolone Sodium Succinate Confirm 07/18/24 06:23 Methylprednis Sod Succ 125 Mg/2 Ml Vial Administered 07/18/24 06:24 Dose 125 mg .ROUTE .STK-MED ONE Ondansetron HCl 4 mg 07/18/24 06:17 07/18/24 06:21 Zofran 4 Mg/Udtablet Orally Disintegrating PO 07/18/24 06:18 Not Given STAT ONE Ondansetron HCl 4 mg 07/18/24 06:21 07/18/24 06:27 Ondansetron Hcl 4 Mg/2 Ml Vial IV 07/18/24 06:22 4 mg STAT ONE Administration Ondansetron HCl Confirm 07/18/24 06:22 Ondansetron Hcl 4 Mg/2 Ml Vial Administered 07/18/24 06:23 Dose 4 mg .ROUTE .STK-MED ONE Sterile Water Confirm 07/18/24 06:22 Water For Injection,Sterile 10 Ml Vial Administered 07/18/24 06:23 Dose 10 ml IJ .STK-MED ONE - Progress Progress: improved Progress Note: 59-year-old female presents to our ED with a 3-day history of cough shortness of breath chest pain fever nausea vomiting. Upon arrival to our ED patient was febrile. Physical exam showed wheezing. Workup initiated. Results pending. Currently the change of shift. Patient endorsed to incoming physician Dr. Moya who will review the pending studies and make final disposition. Portions of this note were created with voice recognition technology. There may be grammatical, spelling, punctuation or sound alike errors Complexity of problem addressed is moderate acute complicated. No critical care time. Complex of data reviewed and analyzed is extensive.. Test ordered chest reviewed results analyzed and correlated clinically with history and physical exam. In light of patient's chest pain hypoxia and tachycardia I am anticipating hospitalization. Risk of complication and or risk of morbidity/mortality of patient management is high. Patient likely will require hospitalization for further evaluation and treatment. Vital stable. Time spent admit patient is approximately 15 minutes. Plan of care established for shared decision making. No social determinants of health present to impede follow-up. Portions of this note were created with voice recognition technology. There may be grammatical, spelling, punctuation or sound alike errors 07/18/24 06:48 Counseled pt/family regarding: lab results, diagnosis, need for follow-up - Departure Departure Disposition: Observation Clinical Impression: Fever, Tachycardia, Cough, SOB (shortness of breath), Nausea & vomiting, Wheezing Condition: Stable Critical Care Time: No Referrals: PRIYANKA CONDE MD [Primary Care Provider] - Follow up/PCP as directed
[2024-07-18] MEDS: Zofran 4 MG/2 ML VIAL IV ONE (06:27)
[2024-07-18] MEDS: TORAdol 30 mg Injection IV ONE (06:27)
[2024-07-18] MEDS: Sodium Chloride 0.9% 1000 ML 1,000 ML IV SCH (06:28)
[2024-07-18] MEDS: TYLENOL 325 MG PO ONE (06:28)
[2024-07-18] MEDS: solu-MEDROL 125 MG, Sterile H2O 10 ml 2 ML IV ONE (06:28)
[2024-07-18] MEDS ORDERED: DUONEB 0.5-3 MG/3 ml Neb IH ONE (06:46)
[2024-07-18] MEDS: DUONEB 0.5-3 MG/3 ml Neb IH ONE (06:52)
[2024-07-18 07:00] LABS: ALBUMIN 4.6 g/dL (3.5-5.0); ANION GAP 14.8 MEQ/L (5-15); BILIRUBIN,TOTAL 0.7 mg/dL (0.2-1.3); Calcium 9.4 mg/dL (8.4-10.2); Creatinine 1 0.69 mg/dL (0.52-1.04); EST GLOMERULAR FILTRATION RATE 98.7 ML/MIN; Potassium 4.1 mmol/L (3.5-5.1); Total Protein 7.2 g/dL (6.3-8.2)
[2024-07-18 07:20] LABS: INFLUENZA A NEGATIVE (NEGATIVE); INFLUENZA B NEGATIVE (NEGATIVE); RESPIRATORY SYNCTIAL VIRUS NEGATIVE (NEGATIVE); SARS-CoV-2 Xpert Express NEGATIVE (NEGATIVE)
[2024-07-18 07:22] LABS: Absolute Neutrophil Ct (ANC) 5.56 x10^3/uL (1.56-6.13); BASOPHIL % 0.5 % (0.1-1.2); Basophil (Absolute #) 0.03 x10^3/uL (0.01-0.08); Eosinophil % 1.2 % (0.7-5.8); Eosinophil (Absolute #) 0.08 x10^3/uL (0.04-0.36); Hematocrit 40.3 % (34.1-44.9); Hemoglobin 13.6 g/dL (11.2-15.7); IMMATURE GRAN # 0.03 x10^3u/L (0.001-0.031); IMMATURE GRAN % 0.5 % (0.001-0.429); Lymphocyte (Absolute #) 0.41 x10^3/uL (1.18-3.74); Lymphocytes % 6.3 % (19.3-51.7); Mean Cell Volume 88.4 fL (79.4-94.8); Mean Corpuscular Hemoglobin 29.8 pg (25.6-32.2); Mean Corpuscular Hgb Concent. 33.7 g/dL (32.2-35.5); Mean Platelet Volume 10.1 fL (9.4-12.3); Monocyte (Absolute #) 0.42 x10^3/uL (0.24-0.86); Monocytes % 6.4 % (4.7-12.5); Neutrophil % 85.1 % (34.0-71.1); Platelet Count 191 x10^3/uL (182-369); Red Blood Count 4.56 x10^6/uL (3.93-5.22); Red Cell Distribution Width 11.9 % (11.7-14.4); White Blood Count 6.5 x10^3/uL (3.98-10.04)
[2024-07-18 07:50] LABS: Slide Review 1 YES
--- NOTE | 2024-07-18 08:20 | XRAY ---
CLINICAL HISTORY: cough COMPARISON: none. TECHNIQUE: An X-ray image of the chest is obtained in frontal projection. FINDINGS: Pulmonary Parenchyma: A Left middle lung zone pulmonary nodule measures about 6.5 x 5 mm. Prominent both hilar shadow with perihilar accentuated broncho vascular markings suggesting lung congestion. Mild reticular densities in both lower lung regions. No evidence of consolidation, collapse, or focal opacities. No evidence of pleural effusion or pleural thickening. Heart and Mediastinum: Heart size and shape are normal. No mediastinal widening or masses. No hilar or mediastinal lymphadenopathy. Bony Thorax: Spondylodegenrative changes of the thoracic vertebrae. The bony thorax appears intact without fractures or deformities. Soft Tissues: Soft tissues overlying the chest wall are unremarkable. IMPRESSION: 1. A Left middle lung zone pulmonary nodule measures about 6.5 x 5 mm. 2. Prominent both hilar shadow with perihilar accentuated broncho vascular markings suggesting lung congestion. 3. Mild reticular densities in both lower lung regions. Mild early infection Electronically Signed by: Annalisa Lane MD. (07/18/2024 08:15:28 EST)
[2024-07-18 10:39] LABS: Appearance Clear (Clear); Bacteria None Seen /HPF (None Seen); Bilirubin Negative (Negative); Blood Negative (Negative); Epithelial Cells None Seen /HPF (None Seen); Glucose, Urine Negative (Negative); Hyaline Casts NONE SEEN /LPF (0-2); Ketones Negative (Negative); Leukocyte Esterase Negative (Negative); Nitrite Negative (Negative); Ph 6.5 (4.6-8.0); Protein,Urine Dip Negative (Negative); RBC 0-2 /HPF (0-5); Urobilinogen 0.2 mg/dL (0.2); WBC 0-2 /HPF (0-5)
[2024-07-18] MEDS ORDERED: ROCEPHIN 2 GM/100 ML NACL 2 GM/100 ML IVPB IV ONE (10:52)
[2024-07-18] MEDS: ROCEPHIN 2 GM/100 ML NACL 2 GM/100 ML IVPB IV ONE (10:53)
[2024-07-18] MEDS ORDERED: Zithromax 500 MG/ 250 ML NaCl Premix 500 MG/250 ML IVPB IV ONE (11:18)
[2024-07-18] MEDS: Zithromax 500 MG/ 250 ML NaCl Premix 500 MG/250 ML IVPB IV STA (11:30)
[2024-07-18] MEDS ORDERED: NON-FORMULARY ITEM (Albuterol Sulfate [Proair Digihaler] 90 MCG Aer.Pw.Bas) IH PRN (14:16)
[2024-07-18] MEDS ORDERED: NON-FORMULARY ITEM (Albuterol Sulfate 8.5 GM Hfa.Aer.Ad) IH PRN (14:16)
[2024-07-18] MEDS ORDERED: Docusate Sodium 100 MG PO PRN (14:16)
--- NOTE | 2024-07-18 14:26 | PCM.HP ---
History of Present Illness - Chief Complaint Chief Complaint: PNE, HYPOXIA Date: 07/18/24 History of Present Illness: is a 59-year-old female history of asthma presents to our ED for evaluation of cough chest pain fever nausea vomiting body aches. No diarrhea. Upon arrival to our emergency department patient was observed to be febrile. Patient was tachycardic in the 120s. Patient hypoxic at 91% on room air. Patient normally does not require oxygen. Symptoms have been ongoing for approximately 3 to 4 days. Patient was diagnosed with a sinus infection approximately 3 days ago. Patient currently on Augmentin. Patient's cough is dry nonproductive. Patient's symptoms have been progressive. Symptoms are moderate in intensity. Shortness of breath worse with exertion. 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 CXR shows 1. A Left middle lung zone pulmonary nodule measures about 6.5 x 5 mm. 2. Prominent both hilar shadow with perihilar accentuated broncho vascular markings suggesting lung congestion. 3. Mild reticular densities in both lower lung regions. Mild early infection. She is currently on 4LNC 91%. IV antibiotics started in the ER and will continue. D-Dimer negative. Consider CT chest if sxs do not improve. Trop x2 negative. Flu/ COVID/RSV negative. Will treat for bronchitis. She continues to have chest pressure, and SOB. Denies abd. pain, N/V/D. - Review of Systems Constitutional: No Fever, No Chills Eyes: No Symptoms Ears, Nose, & Throat: No Symptoms Respiratory: Cough, Short Of Breath, Wheezing Cardiac: Chest Pain, No Edema, No Syncope Abdominal/Gastrointestinal: No Abdominal Pain, No Nausea, No Vomiting, No Diarrhea Genitourinary Symptoms: No Dysuria Musculoskeletal: No Back Pain, No Neck Pain Skin: No Rash Neurological: No Dizziness, No Focal Weakness, No Sensory Changes Psychological: No Symptoms Endocrine: No Symptoms Hematologic/Lymphatic: No Symptoms Immunological/Allergic: No Symptoms Medications & Allergies Home Medications: Home Medication List Albuterol Sulfate [Albuterol Sulfate Hfa] 8.5 gm IH Q4HPRN PRN 07/18/24 [History Confirmed 07/18/24] Albuterol Sulfate [Proair Digihaler] 2 puff IH QID PRN 07/18/24 [History Confirmed 07/18/24] Mkhva-S-Dgvfvzwluihvf [Beano] 400 unit PO DAILY 07/18/24 [History Confirmed 07/18/24] Amoxicillin/Potassium Clav [Amox-Clav 875-125 mg Tablet] 1 each PO Q12H 07/18/24 [History Confirmed 07/18/24] Cholecalciferol (Vitamin D3) [Vitamin D3] 2,000 unit PO DAILY 07/18/24 [History Confirmed 07/18/24] Docusate Sodium 100 mg [Docusate Sodium 100 MG] 1 cap PO DAILY PRN 07/18/24 [History Confirmed 07/18/24] Esomeprazole Magnesium [Acid Pediatric Audiologist] 20 mg PO BID 07/18/24 [History Confirmed 07/18/24] Fluconazole [Diflucan ] 150 mg PO UD 07/18/24 [History Confirmed 07/18/24] Semaglutide [Ozempic] 2 mg SQ WEEKLY 07/18/24 [History Confirmed 07/18/24] buPROPion HCL [Bupropion HCl] 75 mg PO DAILY 07/18/24 [History Confirmed 07/18/24] Allergies/Adverse Reactions: Allergies Allergy/AdvReac Type Severity Reaction Status Date / Time codeine [Codeine] Allergy Mild Verified 07/18/24 05:36 naproxen [From Aleve] Allergy Rapid Verified 07/18/24 12:23 Heart Beat phentermine Allergy Verified 07/18/24 06:03 strawberry Allergy Verified 07/18/24 06:03 - Past Medical History Past Medical History: Yes Neurological History: No Pertinent History ENT History: No Pertinent History Cardiac History: No Pertinent History Respiratory History: Asthma Endocrine Medical History: No Pertinent History Musculoskelatal History: No Pertinent History GI Medical History: GERD History: No Pertinent History Pyscho-Social History: No Pertinent History Reproductive Disorders: No Pertinent History - Past Surgical History Past Surgical History: Yes Neuro Surgical History: No Pertinent History Cardiac History: No Pertinent History Respiratory Surgery: No Pertinent History GI Surgical History: No Pertinent History Genitourinary Surgical Hx: No Pertinent History Musculskeletal Surgical Hx: No Pertinent History Female Surgical History: Hysterectomy, Tubal Ligation - Social History Smoking Status: Never smoker Exposure to second hand smoke: Yes Alcohol: Rarely Drug Use: none - Social Determinants of Health Will the patient participate in the screening: Yes Do you worry about a steady place to live?: No Do you have any problems with any of the following?: No known problems In the past 12 months,have you had to go without utilities?: No Have you or anyone in your house had to go without enough: No Transportation Issues: No Has anyone in your support network made you feel unsafe?: No Does the patient want assistance with any of the above?: No - Physical Exam Vital Signs: Vital Signs - 24 hr Temp Pulse Resp BP BP Pulse Ox 07/18/24 12:28 98.4 F 106 H 19 120/73 91 L 07/18/24 12:04 98.4 F 106 H 16 120/73 90 L 07/18/24 11:30 121/69 07/18/24 11:00 103 H 25 H 88/58 92 L 07/18/24 10:30 99.1 F 106 H 19 105/62 91 L 07/18/24 10:00 99 H 19 109/77 93 L 07/18/24 09:30 101 H 18 113/76 94 L 07/18/24 09:00 100 H 17 116/74 93 L 07/18/24 08:30 98 H 18 127/79 93 L 07/18/24 08:00 104 H 22 130/79 93 L 07/18/24 07:30 104 H 19 130/85 91 L 07/18/24 07:15 120 H 20 91 L 07/18/24 07:00 111 H 22 145/97 93 L 07/18/24 06:51 93 L 07/18/24 06:35 121 H 20 169/101 93 L 07/18/24 06:34 117 H 22 94 L 07/18/24 06:31 124 H 20 94 L 07/18/24 06:19 95 07/18/24 06:00 125 H 29 H 173/101 94 L 07/18/24 05:43 102.8 F 127 H 24 164/95 93 L 07/18/24 05:37 123 H 22 164/95 94 L General Appearance: no apparent distress, alert Neurologic Exam: alert, oriented x 3, cooperative, normal mood/affect, nml cerebellar function, nml station & gait, sensation nml, No motor deficits Eye Exam: PERRL/EOMI, eyes nml inspection Ears, Nose, Throat Exam: normal ENT inspection, TMs normal, pharynx normal, moist mucous membranes Neck Exam: normal inspection, non-tender, supple, full range of motion Respiratory Exam: diminished breath sounds, wheezing, No respiratory distress Cardiovascular Exam: regular rate/rhythm, normal heart sounds, normal peripheral pulses Gastrointestinal/Abdomen Exam: soft, normal bowel sounds, No tenderness, No mass Back Exam: normal inspection, normal range of motion, No CVA tenderness, No vertebral tenderness Extremity Exam: normal inspection, normal range of motion, pelvis stable Skin Exam: normal color, warm, dry, No rash Lymphatic Exam: No adenopathy Results - Labs Lab/Micro Results: Lab Results-Last 24 Hours 07/18/24 07/18/24 07/18/24 Range/Units 06:00 06:00 06:00 WBC 6.5 (3.98-10.04) x10^3/uL RBC 4.56 (3.93-5.22) x10^6/uL Hgb 13.6 (11.2-15.7) g/dL Hct 40.3 (34.1-44.9) % MCV 88.4 (79.4-94.8) fL MCH 29.8 (25.6-32.2) pg MCHC 33.7 (32.2-35.5) g/dL RDW 11.9 (11.7-14.4) % Plt Count 191 (182-369) x10^3/uL MPV 10.1 (9.4-12.3) fL Gran % 85.1 H (34.0-71.1) % Immature Gran % (Auto) 0.5 H (0.001-0.429) % Nucleat RBC Rel Count 0.0 (0.00-0.2) % Eos # (Auto) 0.08 (0.04-0.36) x10^3/uL Immature Gran # (Auto) 0.03 (0.001-0.031) x10^3u/L Absolute Lymphs (auto) 0.41 L (1.18-3.74) x10^3/uL Absolute Monos (auto) 0.42 (0.24-0.86) x10^3/uL Absolute Nucleated RBC 0.00 (0.00-0.012) x10^3u/L Lymphocytes % 6.3 L (19.3-51.7) % Monocytes % 6.4 (4.7-12.5) % Eosinophils % 1.2 (0.7-5.8) % Basophils % 0.5 (0.1-1.2) % Absolute Granulocytes 5.56 (1.56-6.13) x10^3/uL Basophils # 0.03 (0.01-0.08) x10^3/uL D-Dimer 0.34 (0.0-0.50) mg/L Sodium 138 (135-145) mmol/L Potassium 4.1 (3.5-5.1) mmol/L Chloride 101 (98-107) mmol/L Carbon Dioxide 27 (22-30) mmol/L Anion Gap 14.8 (5-15) MEQ/L BUN 12 (7-17) mg/dL Creatinine 0.69 (0.52-1.04) mg/dL Estimated GFR 98.7 ML/MIN Glucose 104 (74-106) mg/dL Calcium 9.4 (8.4-10.2) mg/dL Total Bilirubin 0.70 (0.2-1.3) mg/dL AST 30 (14-36) U/L ALT 29 (0-35) U/L Alkaline Phosphatase 101 (38-126) U/L Troponin I (0.000-0.033) ng/mL NT-Pro-B Natriuret Pep (<300) pg/mL Serum Total Protein 7.2 (6.3-8.2) g/dL Albumin 4.6 (3.5-5.0) g/dL Lipase (23-300) U/L Urine Color (Yellow) Urine Appearance (Clear) Urine pH (4.6-8.0) Ur Specific [place] (1.005-1.030) Urine Protein (Negative) Urine Glucose (UA) (Negative) mg/dL Urine Ketones (Negative) Urine Blood (Negative) Urine Nitrite (Negative) Urine Bilirubin (Negative) Urine Urobilinogen (0.2) mg/dL Ur Leukocyte Esterase (Negative) U Hyaline Cast (Auto) (0-2) /LPF Urine Microscopic RBC (0-5) /HPF Urine Microscopic WBC (0-5) /HPF Ur Epithelial Cells (None Seen) /HPF Urine Bacteria (None Seen) /HPF Urine Culture Reflexed (NO) Monoscreen (NEGATIVE) Influenza Type A Ag (NEGATIVE) Influenza Type B Ag (NEGATIVE) RSV (PCR) (NEGATIVE) SARS-CoV-2 (PCR) (NEGATIVE) Slides for Path Review YES 07/18/24 07/18/24 07/18/24 Range/Units 06:00 06:30 06:30 WBC (3.98-10.04) x10^3/uL RBC (3.93-5.22) x10^6/uL Hgb (11.2-15.7) g/dL Hct (34.1-44.9) % MCV (79.4-94.8) fL MCH (25.6-32.2) pg MCHC (32.2-35.5) g/dL RDW (11.7-14.4) % Plt Count (182-369) x10^3/uL MPV (9.4-12.3) fL Gran % (34.0-71.1) % Immature Gran % (Auto) (0.001-0.429) % Nucleat RBC Rel Count (0.00-0.2) % Eos # (Auto) (0.04-0.36) x10^3/uL Immature Gran # (Auto) (0.001-0.031) x10^3u/L Absolute Lymphs (auto) (1.18-3.74) x10^3/uL Absolute Monos (auto) (0.24-0.86) x10^3/uL Absolute Nucleated RBC (0.00-0.012) x10^3u/L Lymphocytes % (19.3-51.7) % Monocytes % (4.7-12.5) % Eosinophils % (0.7-5.8) % Basophils % (0.1-1.2) % Absolute Granulocytes (1.56-6.13) x10^3/uL Basophils # (0.01-0.08) x10^3/uL D-Dimer (0.0-0.50) mg/L Sodium (135-145) mmol/L Potassium (3.5-5.1) mmol/L Chloride (98-107) mmol/L Carbon Dioxide (22-30) mmol/L Anion Gap (5-15) MEQ/L BUN (7-17) mg/dL Creatinine (0.52-1.04) mg/dL Estimated GFR ML/MIN Glucose (74-106) mg/dL Calcium (8.4-10.2) mg/dL Total Bilirubin (0.2-1.3) mg/dL AST (14-36) U/L ALT (0-35) U/L Alkaline Phosphatase (38-126) U/L Troponin I < 0.012 (0.000-0.033) ng/mL NT-Pro-B Natriuret Pep (<300) pg/mL Serum Total Protein (6.3-8.2) g/dL Albumin (3.5-5.0) g/dL Lipase (23-300) U/L Urine Color (Yellow) Urine Appearance (Clear) Urine pH (4.6-8.0) Ur Specific [place] (1.005-1.030) Urine Protein (Negative) Urine Glucose (UA) (Negative) mg/dL Urine Ketones (Negative) Urine Blood (Negative) Urine Nitrite (Negative) Urine Bilirubin (Negative) Urine Urobilinogen (0.2) mg/dL Ur Leukocyte Esterase (Negative) U Hyaline Cast (Auto) (0-2) /LPF Urine Microscopic RBC (0-5) /HPF Urine Microscopic WBC (0-5) /HPF Ur Epithelial Cells (None Seen) /HPF Urine Bacteria (None Seen) /HPF Urine Culture Reflexed (NO) Monoscreen NEGATIVE (NEGATIVE) Influenza Type A Ag NEGATIVE (NEGATIVE) Influenza Type B Ag NEGATIVE (NEGATIVE) RSV (PCR) NEGATIVE (NEGATIVE) SARS-CoV-2 (PCR) NEGATIVE (NEGATIVE) Slides for Path Review 07/18/24 07/18/24 07/18/24 Range/Units 06:30 06:39 10:15 WBC (3.98-10.04) x10^3/uL RBC (3.93-5.22) x10^6/uL Hgb (11.2-15.7) g/dL Hct (34.1-44.9) % MCV (79.4-94.8) fL MCH (25.6-32.2) pg MCHC (32.2-35.5) g/dL RDW (11.7-14.4) % Plt Count (182-369) x10^3/uL MPV (9.4-12.3) fL Gran % (34.0-71.1) % Immature Gran % (Auto) (0.001-0.429) % Nucleat RBC Rel Count (0.00-0.2) % Eos # (Auto) (0.04-0.36) x10^3/uL Immature Gran # (Auto) (0.001-0.031) x10^3u/L Absolute Lymphs (auto) (1.18-3.74) x10^3/uL Absolute Monos (auto) (0.24-0.86) x10^3/uL Absolute Nucleated RBC (0.00-0.012) x10^3u/L Lymphocytes % (19.3-51.7) % Monocytes % (4.7-12.5) % Eosinophils % (0.7-5.8) % Basophils % (0.1-1.2) % Absolute Granulocytes (1.56-6.13) x10^3/uL Basophils # (0.01-0.08) x10^3/uL D-Dimer (0.0-0.50) mg/L Sodium (135-145) mmol/L Potassium (3.5-5.1) mmol/L Chloride (98-107) mmol/L Carbon Dioxide (22-30) mmol/L Anion Gap (5-15) MEQ/L BUN (7-17) mg/dL Creatinine (0.52-1.04) mg/dL Estimated GFR ML/MIN Glucose (74-106) mg/dL Calcium (8.4-10.2) mg/dL Total Bilirubin (0.2-1.3) mg/dL AST (14-36) U/L ALT (0-35) U/L Alkaline Phosphatase (38-126) U/L Troponin I < 0.012 (0.000-0.033) ng/mL NT-Pro-B Natriuret Pep 178 (<300) pg/mL Serum Total Protein (6.3-8.2) g/dL Albumin (3.5-5.0) g/dL Lipase 50 (23-300) U/L Urine Color (Yellow) Urine Appearance (Clear) Urine pH (4.6-8.0) Ur Specific [place] (1.005-1.030) Urine Protein (Negative) Urine Glucose (UA) (Negative) mg/dL Urine Ketones (Negative) Urine Blood (Negative) Urine Nitrite (Negative) Urine Bilirubin (Negative) Urine Urobilinogen (0.2) mg/dL Ur Leukocyte Esterase (Negative) U Hyaline Cast (Auto) (0-2) /LPF Urine Microscopic RBC (0-5) /HPF Urine Microscopic WBC (0-5) /HPF Ur Epithelial Cells (None Seen) /HPF Urine Bacteria (None Seen) /HPF Urine Culture Reflexed (NO) Monoscreen (NEGATIVE) Influenza Type A Ag (NEGATIVE) Influenza Type B Ag (NEGATIVE) RSV (PCR) (NEGATIVE) SARS-CoV-2 (PCR) (NEGATIVE) Slides for Path Review 07/18/24 Range/Units 10:20 WBC (3.98-10.04) x10^3/uL RBC (3.93-5.22) x10^6/uL Hgb (11.2-15.7) g/dL Hct (34.1-44.9) % MCV (79.4-94.8) fL MCH (25.6-32.2) pg MCHC (32.2-35.5) g/dL RDW (11.7-14.4) % Plt Count (182-369) x10^3/uL MPV (9.4-12.3) fL Gran % (34.0-71.1) % Immature Gran % (Auto) (0.001-0.429) % Nucleat RBC Rel Count (0.00-0.2) % Eos # (Auto) (0.04-0.36) x10^3/uL Immature Gran # (Auto) (0.001-0.031) x10^3u/L Absolute Lymphs (auto) (1.18-3.74) x10^3/uL Absolute Monos (auto) (0.24-0.86) x10^3/uL Absolute Nucleated RBC (0.00-0.012) x10^3u/L Lymphocytes % (19.3-51.7) % Monocytes % (4.7-12.5) % Eosinophils % (0.7-5.8) % Basophils % (0.1-1.2) % Absolute Granulocytes (1.56-6.13) x10^3/uL Basophils # (0.01-0.08) x10^3/uL D-Dimer (0.0-0.50) mg/L Sodium (135-145) mmol/L Potassium (3.5-5.1) mmol/L Chloride (98-107) mmol/L Carbon Dioxide (22-30) mmol/L Anion Gap (5-15) MEQ/L BUN (7-17) mg/dL Creatinine (0.52-1.04) mg/dL Estimated GFR ML/MIN Glucose (74-106) mg/dL Calcium (8.4-10.2) mg/dL Total Bilirubin (0.2-1.3) mg/dL AST (14-36) U/L ALT (0-35) U/L Alkaline Phosphatase (38-126) U/L Troponin I (0.000-0.033) ng/mL NT-Pro-B Natriuret Pep (<300) pg/mL Serum Total Protein (6.3-8.2) g/dL Albumin (3.5-5.0) g/dL Lipase (23-300) U/L Urine Color Yellow (Yellow) Urine Appearance Clear (Clear) Urine pH 6.5 (4.6-8.0) Ur Specific [place] 1.010 (1.005-1.030) Urine Protein Negative (Negative) Urine Glucose (UA) Negative (Negative) mg/dL Urine Ketones Negative (Negative) Urine Blood Negative (Negative) Urine Nitrite Negative (Negative) Urine Bilirubin Negative (Negative) Urine Urobilinogen 0.2 (0.2) mg/dL Ur Leukocyte Esterase Negative (Negative) U Hyaline Cast (Auto) NONE SEEN (0-2) /LPF Urine Microscopic RBC 0-2 (0-5) /HPF Urine Microscopic WBC 0-2 (0-5) /HPF Ur Epithelial Cells None Seen (None Seen) /HPF Urine Bacteria None Seen (None Seen) /HPF Urine Culture Reflexed NO (NO) Monoscreen (NEGATIVE) Influenza Type A Ag (NEGATIVE) Influenza Type B Ag (NEGATIVE) RSV (PCR) (NEGATIVE) SARS-CoV-2 (PCR) (NEGATIVE) Slides for Path Review - Radiology Impressions Radiology Exams & Impressions: Radiology Procedures Category Date Time Status CHEST 1 VIEW (PORTABLE) Stat Exams 07/18/24 07:21 Completed - Other Procedures and Tests Respiratory Therapy 07/18/24 07:15 Respiratory Therapy Assessment DAILY 07/18/24 12:22 Oxygen Nasal Cannula 2 lpm Respiratory Therapy Consult ONCE Assessment/Plan (1) Acute bronchitis Current Visit: No Status: Acute Assessment & Plan: - ceftriaxone - Solumedrol BID - duonebs - tele - 4lNC 90% - RT eval and wean keep O2 > 92% - Flu/COVID RSV negative - CBC. CMP reviewed - CXR reviewed - Consider CT chest Code(s): J20.9 - ACUTE BRONCHITIS, UNSPECIFIED (2) Cough Current Visit: Yes Status: Acute Assessment & Plan: - tessalon PRN - coughing green sputum - Sputum culture Code(s): R05.9 - COUGH, UNSPECIFIED (3) SOB (shortness of breath) Current Visit: Yes Status: Acute Assessment & Plan: - See plan above Code(s): R06.02 - SHORTNESS OF BREATH (4) Tachycardia Current Visit: Yes Status: Acute Assessment & Plan: - tele - 2:2 bronchitis - EKG - monitor Code(s): R00.0 - TACHYCARDIA, UNSPECIFIED (5) Body aches Current Visit: Yes Status: Acute Assessment & Plan: - Tylenol PRN pain Code(s): R52 - PAIN, UNSPECIFIED (6) Morbid obesity with BMI of 40.0-44.9, adult Current Visit: Yes Status: Chronic Assessment & Plan: - advised diet and exercise control - takes ozempic for weight loss- held for now VTE: Lovenox PPI: Protonix Next of Kin: Spouse- Johan D/C plan: 1-2 days Code status: Full Code(s): E66.01 - MORBID (SEVERE) OBESITY DUE TO EXCESS CALORIES; Z68.41 - BODY MASS INDEX [BMI] 40.0-44.9, ADULT
[2024-07-18] MEDS ORDERED: DIFLUCAN PO SCH (14:30)
[2024-07-18] MEDS: DUONEB 0.5-3 MG/3 ml Neb IH SCH (14:43)
[2024-07-18] MEDS: VITAMIN D PO SCH (14:44)
[2024-07-18] MEDS: TYLENOL EXTRA STRENGTH 500 MG PO PRN (14:44)
[2024-07-18] MEDS: Tessalon Perles 100 MG PO PRN (14:44)
[2024-07-18] MEDS ORDERED: MEDICATION INTERVENTION MC SCH ×2 (14:45)
[2024-07-18] MEDS ORDERED: Compazine 10 MG/2 ML IV PRN (16:50)
[2024-07-18] MEDS: MOTRIN 600 MG PO PRN (18:02)
[2024-07-18] MEDS: Protonix 40MG Tablet PO SCH (21:58)
[2024-07-18] MEDS: solu-MEDROL 40 MG, Sterile H2O 10 ml 1 ML IV SCH (21:58)
[2024-07-18] MEDS ORDERED: ESOMEPRAZOLE MAGNESIUM 20 MG PO SCH (22:00)
[2024-07-18] MEDS: VENTOLIN COMMON CANISTER IH PRN (23:31)
[2024-07-19 05:45] LABS: Mean Cell Volume 89.8 fL (79.4-94.8); Mean Corpuscular Hemoglobin 29.1 pg (25.6-32.2); Mean Corpuscular Hgb Concent. 32.4 g/dL (32.2-35.5); Platelet Count 157 x10^3/uL (182-369); Red Blood Count 4.12 x10^6/uL (3.93-5.22); Red Cell Distribution Width 11.9 % (11.7-14.4); White Blood Count 5.1 x10^3/uL (3.98-10.04)
[2024-07-19 07:45] LABS: ALBUMIN 4.1 g/dL (3.5-5.0); ANION GAP 13.1 MEQ/L (5-15); BILIRUBIN,TOTAL 0.4 mg/dL (0.2-1.3); Calcium 8.8 mg/dL (8.4-10.2); Creatinine 1 0.57 mg/dL (0.52-1.04); EST GLOMERULAR FILTRATION RATE 103.3 ML/MIN; Total Protein 6.7 g/dL (6.3-8.2)
[2024-07-19] MEDS: PATIENT OWN MEDICATION PO SCH (09:18)
[2024-07-19] MEDS: ROCEPHIN 1 GM / 100 ML NaCl 1 GM/100 ML IVPB IV SCH (09:18)
[2024-07-19] MEDS: ENOXAPARIN SODIUM SQ SCH (09:19)
[2024-07-19] MEDS ORDERED: BUPROPION HCL 75 MG PO SCH (10:00)
[2024-07-19] MEDS ORDERED: NON-FORMULARY ITEM (Cholecalciferol (Vitamin D3) [Vitamin D3] 50 MCG Capsule) PO SCH (10:00)
[2024-07-19] MEDS ORDERED: ALPHA D GALACTOSIDASE 400 UNIT PO SCH (10:00)
--- NOTE | 2024-07-19 13:13 | PCM.NOTE ---
Date and Time: 07/19/24 1308 Subjective Assessment: 07/18/24 is a 59-year-old female history of asthma presents to our ED for evaluation of cough chest pain fever nausea vomiting body aches. No diarrhea. Upon arrival to our emergency department patient was observed to be febrile. Patient was tachycardic in the 120s. Patient hypoxic at 91% on room air. Patient normally does not require oxygen. Symptoms have been ongoing for approximately 3 to 4 days. Patient was diagnosed with a sinus infection approximately 3 days ago. Patient currently on Augmentin. Patient's cough is dry nonproductive. Patient's symptoms have been progressive. Symptoms are moderate in intensity. Shortness of breath worse with exertion. 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 CXR shows 1. A Left middle lung zone pulmonary nodule measures about 6.5 x 5 mm. 2. Prominent both hilar shadow with perihilar accentuated broncho vascular markings suggesting lung congestion. 3. Mild reticular densities in both lower lung regions. Mild early infection. She is currently on 4LNC 91%. IV antibiotics started in the ER and will continue. D-Dimer negative. Consider CT chest if sxs do not improve. Trop x2 negative. Flu/ COVID/RSV negative. Will treat for bronchitis. She continues to have chest pressure, and SOB. Denies abd. pain, N/V/D. 07/19/24 Pt walking in room today. She has activity intolerance. She remains on 3L NC at 95%, she is room air at baseline. Lung sounds diminished in the bases. Labs overall improved. She reports she needs a neb machine at home when able to d/c she does not want to d/c today and would like to stay another day. She reports her smokes in the house and provided education to [facility] her and her regarding this. He is agreeable to smoke outside from now on. Continue antibiotics, steroids, duonebs. BC x2 negative. Sputum culture pending. She denies CP, abd pain, N/V/D. - Review of Systems Constitutional: No Fever, No Chills Eyes: No Symptoms Ears, Nose, & Throat: No Symptoms Respiratory: Short Of Breath, No Cough Cardiac: No Chest Pain, No Edema, No Syncope Abdominal/Gastrointestinal: No Abdominal Pain, No Nausea, No Vomiting, No Diarrhea Genitourinary Symptoms: No Dysuria Musculoskeletal: No Back Pain, No Neck Pain Skin: No Rash Neurological: No Dizziness, No Focal Weakness, No Sensory Changes Psychological: No Symptoms Endocrine: No Symptoms Hematologic/Lymphatic: No Symptoms Immunological/Allergic: No Symptoms Objective Exam General Appearance: no apparent distress, alert, obese Neurologic Exam: alert, oriented x 3, cooperative, normal mood/affect, nml cerebellar function, sensation nml, No motor deficits Skin Exam: normal color, warm, dry Eye Exam: PERRL, EOMI, eyes nml inspection Ears, Nose, Throat Exam: normal ENT inspection, pharynx normal, moist mucous membranes Neck Exam: normal inspection, non-tender, supple, full range of motion Respiratory Exam: normal breath sounds, lungs clear, diminished breath sounds (BLLL), No respiratory distress Cardiovascular Exam: regular rate/rhythm, normal heart sounds Gastrointestinal/Abdomen Exam: soft, No tenderness, No mass Extremity Exam: normal inspection, normal range of motion Back Exam: normal inspection, normal range of motion, No CVA tenderness, No vertebral tenderness Pelvic Exam: deferred Rectal Exam: deferred Objective Data Vital Signs: Vital Signs - 24 hr Temp Pulse Resp BP Pulse Ox 07/19/24 10:26 101 H 26 H 90 L 07/19/24 08:00 98.2 F 97 H 20 112/61 94 L 07/19/24 05:25 95 H 18 95 07/19/24 04:00 97.7 F 77 21 120/67 95 07/19/24 00:00 97.1 F 90 21 133/82 92 L 07/18/24 23:33 81 24 92 L 07/18/24 20:00 97.8 F 102 H 24 121/59 94 L 07/18/24 18:22 104 H 20 93 L 07/18/24 16:00 99.1 F 119 H 20 143/74 90 L 07/18/24 14:56 111 H 18 94 L Pain Assessment - Last Documented Pain Intensity 6 Pain Scale Used 0-10 Pain Scale Intake and Output: Intake & Output 07/17/24 07/18/24 07/19/24 07/20/24 11:59 11:59 11:59 11:59 Intake Total 1720 Output Total 1600 Balance 120 Weight 123.2 kg 123.2 kg Lab Results: Lab Results-Last 24 Hours 07/18/24 07/19/24 07/19/24 Range/Units 14:09 04:34 04:34 WBC 5.1 (3.98-10.04) x10^3/uL RBC 4.12 (3.93-5.22) x10^6/uL Hgb 12.0 (11.2-15.7) g/dL Hct 37.0 (34.1-44.9) % MCV 89.8 (79.4-94.8) fL MCH 29.1 (25.6-32.2) pg MCHC 32.4 (32.2-35.5) g/dL RDW 11.9 (11.7-14.4) % Plt Count 157 L (182-369) x10^3/uL MPV 10.0 (9.4-12.3) fL Sodium 139 (135-145) mmol/L Potassium 4.0 (3.5-5.1) mmol/L Chloride 105 (98-107) mmol/L Carbon Dioxide 24 (22-30) mmol/L Anion Gap 13.1 (5-15) MEQ/L BUN 12 (7-17) mg/dL Creatinine 0.57 (0.52-1.04) mg/dL Estimated GFR 103.3 ML/MIN Glucose 134 H (74-106) mg/dL Calcium 8.8 (8.4-10.2) mg/dL Total Bilirubin 0.40 (0.2-1.3) mg/dL AST 27 (14-36) U/L ALT 26 (0-35) U/L Alkaline Phosphatase 81 (38-126) U/L Troponin I < 0.012 (0.000-0.033) ng/mL Serum Total Protein 6.7 (6.3-8.2) g/dL Albumin 4.1 (3.5-5.0) g/dL Radiology Exams: Radiology Procedures Category Date Time Status CHEST 1 VIEW (PORTABLE) Stat Exams 07/18/24 07:21 Completed Multi-Disciplinary Progress Notes: Multi-Disciplinary Progress Notes 07/19/24 11:12 Respiratory Note by Kerry Young resting room air 90%. walking room air sat 86%. Placed on 2 L NC. Sats 88%. Increased to 3L NC sats 93%. Initialized on 07/19/24 11:12 - END OF NOTE Assessment/Plan (1) Acute bronchitis Current Visit: No Status: Acute Code(s): J20.9 - ACUTE BRONCHITIS, UNSPECIFIED (2) Cough Current Visit: Yes Status: Acute Code(s): R05.9 - COUGH, UNSPECIFIED (3) SOB (shortness of breath) Current Visit: Yes Status: Acute Code(s): R06.02 - SHORTNESS OF BREATH (4) Tachycardia Current Visit: Yes Status: Acute Code(s): R00.0 - TACHYCARDIA, UNSPECIFIED (5) Body aches Current Visit: Yes Status: Acute Code(s): R52 - PAIN, UNSPECIFIED (6) Morbid obesity with BMI of 40.0-44.9, adult Current Visit: Yes Status: Chronic Assessment & Plan: (1) Acute bronchitis Current Visit: No Status: Acute Assessment & Plan: - ceftriaxone - Solumedrol BID - duonebs - tele - 4lNC 90% - RT eval and wean keep O2 > 92% - Flu/COVID RSV negative - CBC. CMP reviewed - CXR reviewed - Consider CT chest 07/19 - CBC, CMP reviewed - 3lNC 94% - Pt wants neb machine at d/c. - Education for pt and about second hand smoke in home. Code(s): J20.9 - ACUTE BRONCHITIS, UNSPECIFIED (2) Cough Current Visit: Yes Status: Acute Assessment & Plan: - tessalon PRN - coughing green sputum - Sputum culture Code(s): R05.9 - COUGH, UNSPECIFIED (3) SOB (shortness of breath) Current Visit: Yes Status: Acute Assessment & Plan: - See plan above Code(s): R06.02 - SHORTNESS OF BREATH (4) Tachycardia Current Visit: Yes Status: Acute Assessment & Plan: - tele - 2:2 bronchitis - EKG - monitor Code(s): R00.0 - TACHYCARDIA, UNSPECIFIED (5) Body aches Current Visit: Yes Status: Acute Assessment & Plan: - Tylenol PRN pain Code(s): R52 - PAIN, UNSPECIFIED (6) Morbid obesity with BMI of 40.0-44.9, adult Current Visit: Yes Status: Chronic Assessment & Plan: - advised diet and exercise control - takes ozempic for weight loss- held for now VTE: Lovenox PPI: Protonix Next of Kin: Spouse- Johan D/C plan: tomorrow Code status: Full Code(s): E66.01 - MORBID (SEVERE) OBESITY DUE TO EXCESS CALORIES; Z68.41 - BODY MASS INDEX [BMI] 40.0-44.9, ADULT
[2024-07-20 07:26] VITALS: BP 116/75; PULSE 85; RESP 20; TEMP 97.8
--- NOTE | 2024-07-20 09:10 | PCM.DS ---
Discharge Summary Date of Admission: 07/18/24 11:48 Date of Discharge: 07/20/24 Admitting Physician: JORDAN STORM MD Primary Care Provider: PRIYANKA CONDE MARCIN Allergies Allergies codeine [Codeine] Allergy (Mild, Verified 07/18/24 05:36) naproxen [From Aleve] Allergy (Verified 07/18/24 12:23) Rapid Heart Beat phentermine Allergy (Verified 07/18/24 06:03) strawberry Allergy (Verified 07/18/24 06:03) Hospital Summary - Hospital Course Hospital Course: 07/18/24 is a 59-year-old female history of asthma presents to our ED for evaluation of cough chest pain fever nausea vomiting body aches. No diarrhea. Upon arrival to our emergency department patient was observed to be febrile. Patient was tachycardic in the 120s. Patient hypoxic at 91% on room air. Patient normally does not require oxygen. Symptoms have been ongoing for trisha roximately 3 to 4 days. Patient was diagnosed with a sinus infection approximately 3 days ago. Patient currently on Augmentin. Patient's cough is dry nonproductive. Patient's symptoms have been progressive. Symptoms are moderate in intensity. Shortness of breath worse with exertion. 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 She voices no other complaints or concerns at this time. CXR shows 1. A Left middle lung zone pulmonary nodule measures about 6.5 x 5 mm. 2. Prominent both hilar shadow with perihilar accentuated broncho vascular markings suggesting lung congestion. 3. Mild reticular densities in both lower lung regions. Mild early infection. She is currently on 4LNC 91%. IV antibiotics started in the ER and will continue. D-Dimer negative. Consider CT chest if sxs do not improve. Trop x2 negative. Flu/ COVID/RSV negative. Will treat for bronchitis. She continues to have chest pressure, and SOB. Denies abd. pain, N/V/D. 07/19/24 Pt walking in room today. She has activity intolerance. She remains on 3L NC at 95%, she is room air at baseline. Lung sounds diminished in the bases. Labs overall improved. She reports she needs a neb machine at home when able to d/c she does not want to d/c today and would like to stay another day. She reports her smokes in the house and provided education to vanessa th her and her regarding this. He is agreeable to smoke outside from now on. Continue antibiotics, steroids, duonebs. BC x2 negative. Sputum culture pending. She denies CP, abd pain, N/V/D. 07/20/24 Pt sitting up in bed. She reports she is ready to d/c today and feels much better. She is on 2lNC and baseline is Room air. RT to eval for home O2 and she did not qualify. O2 was taken off pt. Lung sounds are clear. Will d/c with steroids and antibiotics. Will also order a neb machine as pt requested. She is to f/u with PCP this week. - Vitals & Intake/Output Vital Signs: Vital Signs Temperature 97.8 F 07/20/24 07:25 Pulse Rate 85 07/20/24 07:25 Respiratory Rate 20 07/20/24 07:25 Blood Pressure 116/75 07/20/24 07:25 O2 Sat by Pulse Oximetry 94 L 07/20/24 07:25 Intake & Output: Intake & Output 07/17/24 07/18/24 07/19/24 07/20/24 11:59 11:59 11:59 11:59 Intake Total 1720 580 Output Total 1600 1100 Balance 120 -520 Weight 123.2 kg 123.2 kg - Lab Result Diagrams: 07/19/24 04:34 07/19/24 04:34 Micro Results-Entire Visit: Microbiology 07/18/24 06:36 Blood Culture - Preliminary Blood 07/18/24 06:30 Blood Culture - Preliminary Blood - Procedures and Test Procedures and Tests throughout Hospitalization: Therapy Orders & Screens 07/18/24 07:15 Respiratory Therapy Assessment DAILY Comment: 07/18/24 12:22 Oxygen Nasal Cannula 2 lpm Comment: Respiratory Therapy Consult ONCE Comment: Reason For Exam: 07/18/24 14:25 RT Miscellaneous Order ROUTINE Comment: Physician Instructions: Reason For Exam: Wean O2 Keep sat > 92%- BL RA Diagnosis: PNE, HYPOXIA 07/19/24 05:57 Flutter Therapy UD Comment: Diagnosis: PNE, HYPOXIA 07/19/24 08:15 RT Miscellaneous Order ROUTINE Comment: Physician Instructions: Reason For Exam: RT eval for home O2 Diagnosis: PNE, HYPOXIA Discharge Exam General Appearance: no apparent distress, alert, obese Neurologic Exam: alert, oriented x 3, cooperative, normal mood/affect, nml cerebellar function, sensation nml, No motor deficits Eye Exam: PERRL, EOMI, eyes nml inspection Ears, Nose, Throat Exam: normal ENT inspection, pharynx normal, moist mucous membranes Neck Exam: normal inspection, non-tender, supple, full range of motion Respiratory Exam: normal breath sounds, lungs clear, No respiratory distress Cardiovascular Exam: regular rate/rhythm, normal heart sounds Gastrointestinal/Abdomen Exam: soft, No tenderness, No mass Pelvic Exam: deferred Rectal Exam: deferred Back Exam: normal inspection, normal range of motion, No CVA tenderness, No vertebral tenderness Extremity Exam: normal inspection, normal range of motion Skin Exam: normal color, warm, dry Final Diagnosis/Problem List - Final Discharge Diagnosis/Problem (1) Acute bronchitis Current Visit: No Status: Acute Code(s): J20.9 - ACUTE BRONCHITIS, UNSPECIFIED (2) Cough Current Visit: Yes Status: Acute Code(s): R05.9 - COUGH, UNSPECIFIED (3) SOB (shortness of breath) Current Visit: Yes Status: Acute Code(s): R06.02 - SHORTNESS OF BREATH (4) Tachycardia Current Visit: Yes Status: Acute Code(s): R00.0 - TACHYCARDIA, UNSPECIFIED (5) Body aches Current Visit: Yes Status: Acute Code(s): R52 - PAIN, UNSPECIFIED (6) Morbid obesity with BMI of 40.0-44.9, adult Current Visit: Yes Status: Chronic Assessment & Plan: (1) Acute bronchitis Current Visit: No Status: Acute Assessment & Plan: - ceftriaxone - Solumedrol BID - duonebs - tele - 4lNC 90% - RT eval and wean keep O2 > 92% - Flu/COVID RSV negative - CBC. CMP reviewed - CXR reviewed - Consider CT chest 07/19 - CBC, CMP reviewed - 3lNC 94% - Pt wants neb machine at d/c. - Education for pt and about second hand smoke in home. - 2lNC 94%- baseline RA - RT eval for home O2 - weaned off O2 - wants to be off work x 1 week- note provided - will sent in order for neb machine per pt request with nebs - lung sounds clear - will follow sputum culture OP - D/C with antibiotics and steroids Code(s): J20.9 - ACUTE BRONCHITIS, UNSPECIFIED (2) Cough Current Visit: Yes Status: Acute Assessment & Plan: - tessalon PRN - coughing green sputum - Sputum culture Code(s): R05.9 - COUGH, UNSPECIFIED (3) SOB (shortness of breath) Current Visit: Yes Status: Acute Assessment & Plan: - See plan above Code(s): R06.02 - SHORTNESS OF BREATH (4) Tachycardia Current Visit: Yes Status: Acute Assessment & Plan: - tele - 2:2 bronchitis - EKG - monitor Code(s): R00.0 - TACHYCARDIA, UNSPECIFIED (5) Body aches Current Visit: Yes Status: Acute Assessment & Plan: - Tylenol PRN pain Code(s): R52 - PAIN, UNSPECIFIED (6) Morbid obesity with BMI of 40.0-44.9, adult Current Visit: Yes Status: Chronic Assessment & Plan: - advised diet and exercise control - takes ozempic for weight loss- held for now Code(s): E66.01 - MORBID (SEVERE) OBESITY DUE TO EXCESS CALORIES; Z68.41 - BODY MASS INDEX [BMI] 40.0-44.9, ADULT - Discharge Discharge Date: 07/20/24 Disposition: Home, Self-Care Condition: Stable Prescriptions: New Albuterol/Ipratropium 3ml Neb* [DUONEB 0.5-3 MG/3 ml Neb] 3 ml IH Q6HPRN PRN 30 Days #120 inh PRN Reason: Shortness Of Breath/Wheezing Nebulizer 1 each MC QID 30 Days #1 unit Continue Albuterol Sulfate [Albuterol Sulfate Hfa] 8.5 gm IH Q4HPRN PRN PRN Reason: Shortness Of Breath Semaglutide [Ozempic] 2 mg SQ WEEKLY [id number] [Beano] 400 unit PO DAILY Docusate Sodium 100 mg [Docusate Sodium 100 MG] 1 cap PO DAILY PRN PRN Reason: Constipation Albuterol Sulfate [Proair Digihaler] 2 puff IH QID PRN PRN Reason: WHEEZING Esomeprazole Magnesium [Acid Gas Load Dispatcher] 20 mg PO BID buPROPion HCL [Bupropion HCl] 75 mg PO DAILY Cholecalciferol (Vitamin D3) [Vitamin D3] 2,000 unit PO DAILY Fluconazole [Diflucan ] 150 mg PO UD Discontinued Amoxicillin/Potassium Clav [Amox-Clav 875-125 mg Tablet] 1 each PO Q12H Follow up with: PRIYANKA CONDE MD [Primary Care Provider] - 07/25/24 10:45 am
[2024-07-20 09:30] VITALS: O2SAT 95
== END 2024-07-20 12:10 | disposition home or self-care (01) ==
LOC: ED 05:35 → MED SURG 11:48
PROVIDERS: ADMIT Internal Medicine; ATTEND Internal Medicine
DX: J20.9 Acute bronchitis, unspecified (principal); R05.9 Cough, unspecified; R06.02 Shortness of breath; R00.0 Tachycardia, unspecified; R52 Pain, unspecified; E66.01 Morbid (severe) obesity due to excess calories; Z68.41 Body mass index [BMI] 40.0-44.9, adult; Z79.899 Other long term (current) drug therapy; Z77.22 Contact with and (suspected) exposure to environmental tobacco smoke (acute) (chronic)
CPT/HCPCS: 0241U; 36415; 71045; 80053; 81001; 83690; 83880; 84484; 85025; 85027; 85379; 86308; 87040; 93005; 93041; 93268; 94640; 94667; 94760; 96374; 99285; G0378; Q3014; J0456; J0696; J1650; J1885; J2405; J2919; A9270-GY